=== PATIENT | male | born 1960 | race Caucasian/White ===

== ENCOUNTER → 2016-10-06 | Outpatient (CLI) | payer OTHER ==
[~2016-10-06] MED LIST: ASPI81TA28 PO; ATOR-22 PO; CHOL20009 PO; FLAX10004 PO; GLAT1INJ SC; GLATIRAMER ACETATE SQ; INSDGI SC; LSN/2025 PO; MELO7.5T6 PO; METF-384 PO; MRLP17X PO; NVLGI SC; OXYC-57 PO; SITA100T3 PO; TRIA0.1C20 TOP
== END | disposition home or self-care (01) ==
LOC: C.LABSPEC 17:28
PROVIDERS: ATTEND Podiatrist Foot & Ankle Surgery
DX: L97.509 Non-pressure chronic ulcer of other part of unspecified foot with unspecified severity (principal)

== ENCOUNTER → 2016-12-16 | Outpatient (CLI) | payer OTHER ==
[2016-12-16 12:21] LABS: BLOOD UREA NITROGEN 18 mg/dl (7-18); CREATININE 0.89 mg/dl (0.60-1.40)
== END | disposition home or self-care (01) ==
LOC: C.LABPVFM 08:11
PROVIDERS: ATTEND Psychiatry & Neurology Neurology
DX: E11.65 Type 2 diabetes mellitus with hyperglycemia (principal)

== ENCOUNTER → 2016-12-21 | Outpatient (CLI) | payer OTHER ==
[~2016-12-21] MED LIST changes: +GADAVIST IV PRN
--- NOTE | 2016-12-21 11:12 | DIAGNOSTIC IMAGING REPORT ---
BRAIN COMBO FOR MS CLINICAL HISTORY: Multiple sclerosis. COMPARISON STUDY: MRI of the brain December 30, 2015. TECHNIQUE: Utilizing a 0.7 Jud open magnet, multiplanar, multi echo imaging of the brain was performed pre and postcontrast administration according to the multiple sclerosis protocol. Injection of 20 cc of Gadavist IV was uneventful. FINDINGS: This exam is compromised by artifact. Increased signal intensity within the right temporal lobe on the diffusion-weighted sequence is artifactual. No acute intracranial hemorrhage, midline shift or mass effect is present. Ventricular system is stable. Basilar cisterns are patent. There are no extra-axial collections. Flow-voids for the major intracranial vessels are present. Numerous subcortical and periventricular white matter T2 hyperintense foci are unchanged since MRI of December 30, 2015. No new areas of signal abnormality are present. No enhancement is identified to suggest active demyelination. There is no intracranial mass. Calvarial signal is maintained. Orbits and sinuses are unremarkable. IMPRESSION: 1. No acute intracranial findings. 2. No change in multiple T2 hyperintense foci which suggest previous demyelination. No new plaques identified. No evidence of active demyelination. Electronically signed by: Zain Baron M.D. 12/21/2016 11:10 AM Dictated Date/Time: 12/21/2016 11:05 AM
== END | disposition home or self-care (01) ==
LOC: C.OPENMRI 09:39
PROVIDERS: ATTEND Psychiatry & Neurology Neurology
DX: G35 Multiple sclerosis (principal)

== ENCOUNTER → 2017-01-25 | Outpatient (CLI) | payer OTHER ==
[~2017-01-25] MED LIST changes: -GADAVIST IV PRN
--- NOTE | 2017-01-25 12:33 | DIAGNOSTIC IMAGING REPORT ---
RIGHT ANKLE MIN 3 VIEWS ROUTINE CLINICAL HISTORY: Lower leg edema. DIABETES COMPARISON: None. DISCUSSION: No acute fractures are visualized. There are soft tissue calcifications present. There is Achilles insertional spur. There is a plantar calcaneal spur. There are mild osteoarthritic changes the level the tibiotalar joint. There is a corticated ossicle adjacent distal fibula. This is felt to be old. There are degenerative changes present within the midfoot and talonavicular joint. IMPRESSION: 1. Degenerative changes 2. No acute fractures 3. Calcaneal spurring Electronically signed by: Rocky Landon M.D. 01/25/2017 12:32 PM Dictated Date/Time: 01/25/2017 12:31 PM
--- NOTE | 2017-01-25 12:41 | DIAGNOSTIC IMAGING REPORT ---
RIGHT FOOT MIN 3 VIEWS ROUTINE CLINICAL HISTORY: RIGHT ANKLE/FOOT PAIN L03.115, L97.512, M20.42, M20.41 COMPARISON: 08/17/2016 DISCUSSION: There is a single screw fusing the first interphalangeal joint. There are no acute fractures. There are mild osteoarthritic changes the level the first metatarsal phalangeal joint. Degenerative changes are present the level tarsometatarsal joints. There is Achilles insertional spur. There is a plantar calcaneal spur. IMPRESSION: Postsurgical and degenerative change. No acute fractures. Electronically signed by: Rocky Landon M.D. 01/25/2017 12:40 PM Dictated Date/Time: 01/25/2017 12:38 PM
[2017-01-25 12:42] LABS: BASO % 0.3 %; BASO ABS # 0.02 K/uL (0-0.2); COMPLETE YES; EOS % 0.6 %; HEMATOCRIT 40.8 % (42-52); IG% 0.1 %; LYMPH % 26.9 %; MEAN CELL VOLUME 84.8 fL (80-100); MEAN CORPUSCULAR HEMOGLOBIN 27.4 pg (25-34); MEAN CORPUSCULAR HGB CONC 32.4 g/dl (32-36); MONO % 6.9 %; NEUT % 65.2 %; PLATELET COUNT 153 K/uL (130-400); RED BLOOD COUNT 4.81 M/uL (4.7-6.1); WHITE BLOOD COUNT 6.69 K/uL (4.8-10.8)
== END | disposition home or self-care (01) ==
LOC: C.RAD 11:40
PROVIDERS: ATTEND Podiatrist Foot & Ankle Surgery
DX: L03.115 Cellulitis of right lower limb (principal); L97.512 Non-pressure chronic ulcer of other part of right foot with fat layer exposed; E10.49 Type 1 diabetes mellitus with other diabetic neurological complication; M20.41 Other hammer toe(s) (acquired), right foot; M20.42 Other hammer toe(s) (acquired), left foot; M77.31 Calcaneal spur, right foot

== ENCOUNTER → 2017-01-25 | Outpatient (CLI) | payer OTHER | END | disposition home or self-care (01) | LOC: C.LABSPEC 16:48 | PROVIDERS: ATTEND Podiatrist Foot & Ankle Surgery | DX: L97.509 Non-pressure chronic ulcer of other part of unspecified foot with unspecified severity (principal) ==

== ENCOUNTER → 2017-02-11 | Outpatient (CLI) | payer OTHER ==
--- NOTE | 2017-02-11 11:20 | DIAGNOSTIC IMAGING REPORT ---
RIGHT FOOT MRI WITHOUT INTRAVENOUS CONTRAST HISTORY: Right foot pain. R FOOT,HX CHRONIC ULCER,MTPJ Right TECHNIQUE: Multiplanar multisequence MRI of the right foot was performed without the use of intravenous contrast. COMPARISON STUDY: Right foot 01/25/2017. Right foot MRI 07/13/2016. FINDINGS: There is a single screw through both the proximal and distal phalanx of the first toe resulting in fusion of the interphalangeal joint. No abnormal marrow signal within the visualized osseous structures. No fracture or dislocation within the forefoot. There is a skin marker along the plantar surface at the level the first MTP joint. There is a small amount of soft tissue edema within the subcutaneous soft tissues at this location and mild skin thickening. There is also a 9 mm focal skin ulceration at this location. The sesamoid bones demonstrate a normal signal intensity. Moderate cartilage space narrowing and small marginal osteophytes at the first MTP joint consistent with degenerative change. There is also linear hypointense focus within the subcutaneous soft tissues at the plantar surface deep to the skin marker. This favors an area of scarring. Mild subcutaneous edema within the dorsal lateral aspect of the forefoot. Small focus of subchondral cystic change at the head of the first metatarsal. IMPRESSION: 1. Overall, there has been no significant change compared to the prior study. There is a skin marker at the plantar surface at the level of the first MTP joint. Deep to the skin marker there is mild skin thickening and subcutaneous edema with a 9 mm focal skin ulceration. This may represent a cellulitis. 2. No fracture, dislocation, or evidence for osteomyelitis within the foot. 3. There is also hypointense signal within the subcutaneous soft tissues deep to the skin marker. This may represent an additional area of scarring. 4. 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 5. Prior fusion of the right first interphalangeal joint. Electronically signed by: Oscar Haley M.D. 02/11/2017 11:19 AM Dictated Date/Time: 02/11/2017 11:12 AM
== END | disposition home or self-care (01) ==
LOC: C.MRI 09:04
PROVIDERS: ATTEND Podiatrist Foot & Ankle Surgery
DX: L97.512 Non-pressure chronic ulcer of other part of right foot with fat layer exposed (principal); L03.115 Cellulitis of right lower limb

== ENCOUNTER → 2017-02-25 | Outpatient (CLI) | payer OTHER ==
[2017-02-25 13:06] LABS: ESTIMATED AVERAGE GLUCOSE 177 mg/dl; HA1C FLAG Normal (Normal)
[2017-02-25 13:13] LABS: RATIO 8.4 mcg/mg (0-30.0)
[2017-02-25 13:55] LABS: ALT/SGPT 29 U/L (12-78); AST/SGOT 13 U/L (15-37); BLOOD UREA NITROGEN 17 mg/dl (7-18); BUN/CREATININE RATIO 19.7 (10-20); CALCIUM 9.2 mg/dl (8.5-10.1); CARBON DIOXIDE 28 mmol/L (21-32); CHLORIDE 103 mmol/L (98-107); CREATININE 0.86 mg/dl (0.60-1.40); GLUCOSE 106 mg/dl (70-99); POTASSIUM 3.9 mmol/L (3.5-5.1); SODIUM 138 mmol/L (136-145)
[2017-02-25 13:58] LABS: ALB/GLOB RATIO 0.8 (0.9-2); ALKALINE PHOSPHATASE 142 U/L (45-117)
== END | disposition home or self-care (01) ==
LOC: C.LABPVFM 09:45
PROVIDERS: ATTEND Urology
DX: R39.15 Urgency of urination (principal); I10 Essential (primary) hypertension; E78.5 Hyperlipidemia, unspecified; G35 Multiple sclerosis; R79.9 Abnormal finding of blood chemistry, unspecified; E55.9 Vitamin D deficiency, unspecified

== ENCOUNTER → 2017-03-11 | Outpatient (CLI) | payer OTHER ==
--- NOTE | 2017-03-11 12:54 | DIAGNOSTIC IMAGING REPORT ---
RIGHT ANKLE MIN 3 VIEWS ROUTINE CLINICAL HISTORY: 56 years-old Male presenting with RIGHT FOOT PAIN Right. TECHNIQUE: Frontal, oblique, and lateral views of the right ankle were obtained. COMPARISON: 01/25/2017. FINDINGS: Ankle mortise intact. Osteophyte formation at the medial talar dome indicative of degenerative change of the tibiotalar articulation. Prominent bone spurs at the posterior calcaneal tuberosity as well as at the inferior calcaneus. Cortical irregularity at the distal fibula, possible old injury. Additional small osseous fragment inferior to the medial malleolus, likely also old injury. No acute fracture or malalignment. IMPRESSION: 1. No acute osseous injury. Evidence of prior osseous injuries as above. 2. Degenerative changes at the tibiotalar articulation, Achilles tendon insertion, and plantar fascia origin. Electronically signed by: Prasad Cox M.D. 03/11/2017 12:52 PM Dictated Date/Time: 03/11/2017 12:50 PM
--- NOTE | 2017-03-11 13:01 | DIAGNOSTIC IMAGING REPORT ---
RIGHT FOOT MIN 3 VIEWS ROUTINE CLINICAL HISTORY: Right foot pain COMPARISON: 01/25/2017 DISCUSSION: There is a single screw fusing the interphalangeal joint of the great toe. There are no acute fractures. There is a soft tissue calcification visualized in the lateral view, dorsal to the first metatarsal phalangeal joint. There is plantar calcaneal spurring. There is an Achilles insertional spur. There are degenerative changes at the level tarsometatarsal joints. IMPRESSION: Postsurgical and degenerative change. No acute fractures. Electronically signed by: Rocky Landon M.D. 03/11/2017 1:00 PM Dictated Date/Time: 03/11/2017 12:58 PM
== END | disposition home or self-care (01) ==
LOC: C.RAD 12:02
PROVIDERS: ATTEND Podiatrist Foot & Ankle Surgery
DX: M24.871 Other specific joint derangements of right ankle, not elsewhere classified (principal); M76.899 Other specified enthesopathies of unspecified lower limb, excluding foot

== ENCOUNTER → 2017-09-06 | Outpatient (CLI) | payer OTHER ==
[2017-09-06 14:00] LABS: ALBUMIN 3.4 gm/dl (3.4-5.0); ALT/SGPT 27 U/L (12-78); BLOOD UREA NITROGEN 14 mg/dl (7-18); CALCIUM 9.4 mg/dl (8.5-10.1); CARBON DIOXIDE 30 mmol/L (21-32); CHOLESTEROL 113 mg/dl (0-200); CREATININE 0.76 mg/dl (0.60-1.40); GLUCOSE 134 mg/dl (70-99); HEMOGLOBIN A1C 6.9 % (4.5-5.6); POTASSIUM 4.1 mmol/L (3.5-5.1); SODIUM 137 mmol/L (136-145)
[2017-09-06 14:05] LABS: ALKALINE PHOSPHATASE 119 U/L (45-117); AST/SGOT 17 U/L (15-37); LDL CHOLESTEROL CALCULATED 53 mg/dl; TOTAL PROTEIN 7.6 gm/dl (6.4-8.2)
== END | disposition home or self-care (01) ==
LOC: C.LABPVFM 09:24
PROVIDERS: ATTEND Family Medicine
DX: I10 Essential (primary) hypertension (principal); E78.5 Hyperlipidemia, unspecified; E11.65 Type 2 diabetes mellitus with hyperglycemia; E11.69 Type 2 diabetes mellitus with other specified complication; E11.42 Type 2 diabetes mellitus with diabetic polyneuropathy; E55.9 Vitamin D deficiency, unspecified; N39.41 Urge incontinence

== ENCOUNTER → 2017-11-16 | Outpatient (CLI) | payer OTHER ==
--- NOTE | 2017-11-16 11:37 | DIAGNOSTIC IMAGING REPORT ---
L FOOT MIN 3 VIEWS ROUTINE CLINICAL HISTORY: NEUROPATHY, L FOOT AND ANKLE EDEMA COMPARISON: Left ankle radiographs February 04, 2015 left foot radiographs July 09, 2010. FINDINGS: There is evidence for amputation of the distal phalanx of the left second toe. There are suspected old fractures of the proximal phalanges of the third, fourth and fifth toes. No acute fracture within the left foot is identified. Alignment of the tarsometatarsal joints is anatomic. Periosteal thickening of the distal left fibula and tibia is noted. Flat foot deformity is noted on lateral projection with extensive sclerosis, osteophytosis and bony fragmentation involving the left hind foot and to a lesser extent the midfoot. Significant progression is noted since exam of February 04, 2015. IMPRESSION: 1. Pes planus deformity with severe deformity of the left hindfoot and to a lesser extent the midfoot with osteophytosis, sclerosis and bony fragmentation with significant progression since exam of February 04, 2015. This suggests a neuropathic arthropathy although old post traumatic change could appear similar. 2. No acute fracture within the left foot. 3. Intact tarsometatarsal joints. 4. Several old left foot fractures, as described above. 5. Periosteal thickening of the distal left fibula and tibia. Electronically signed by: Zain Baron M.D. 11/16/2017 11:36 AM Dictated Date/Time: 11/16/2017 11:30 AM
--- NOTE | 2017-11-16 11:56 | DIAGNOSTIC IMAGING REPORT ---
L ANKLE MIN 3 VIEWS ROUTINE CLINICAL HISTORY: 56 years-old Male presenting with NEUROPATHY, L FOOT AND ANKLE EDEMA. TECHNIQUE: Frontal, oblique, and lateral views of the left ankle were obtained. COMPARISON: None. FINDINGS: Extensive deformity of the ankle with loss of normal talocalcaneal angulation relative to the midfoot and resulting loss of the longitudinal arch. Disorganization of the talar joints. Diffuse sclerosis and disorganization of the ankle joint and hindfoot. Thick periosteal reaction noted along the distal fibula. Ossific material inferior to the anterior calcaneus. Possible dislocation of the talonavicular and navicular cuneiform articulations. Diffuse soft tissue swelling. Diffuse skin thickening. IMPRESSION: Findings could be compatible with a Charcot joint, severe posttraumatic deformity, and/or related to chronic osteomyelitis/septic arthritis. Electronically signed by: Prasad Cox M.D. 11/16/2017 11:55 AM Dictated Date/Time: 11/16/2017 11:50 AM
== END | disposition home or self-care (01) ==
LOC: C.RAD 10:20
PROVIDERS: ATTEND Internal Medicine Endocrinology, Diabetes & Metabolism
DX: G62.9 Polyneuropathy, unspecified (principal); R60.0 Localized edema; M21.42 Flat foot [pes planus] (acquired), left foot

== ENCOUNTER → 2017-12-10 | Outpatient (CLI) | payer OTHER ==
--- NOTE | 2017-12-10 14:13 | DIAGNOSTIC IMAGING REPORT ---
L LOWER EXT JOINT WITHOUT HISTORY: 56 years-old Male DIABETES,LT CHARCOT FX,NEUROPATHY acute pain and swelling of the left ankle and left hindfoot with history of Charcot neuropathy. COMPARISON: Left foot and ankle radiographs 11/16/2017 TECHNIQUE: Multiplanar multisequence MRI of the left hindfoot was obtained without the use of IV contrast. FINDINGS: The bar pilot images demonstrate no gross abnormality of the imaged forefoot or lower leg. Moderate joint space narrowing with marginal spurring, chondral thinning and subcortical cystic changes/edema involves the tibiotalar joint, most pronounced anteriorly. There is no definite acute fracture identified. Pes planus deformity with hindfoot collapse. Severe joint space narrowing with chondral thinning, fragmentation and underlying subcortical cystic change/edema involves the subtalar joint, notably within the middle and posterior facets. Trace fluid is noted within the talonavicular joint. Large corticated bone fragments are seen dorsal to the anterior process talus. There is diffuse destruction of articular cartilage with innumerable loose bodies about the midfoot and hindfoot. The talus is dislocated medially in relation to the calcaneus. The distal fibula articulates with the posterior and middle facets of the calcaneus.. Marked cortical thickening involving the distal fibula with edema noted within the distal tibiofibular syndesmosis. Trace fluid within the retrocalcaneal bursa. Mild thickening of the distal Achilles tendon suggests tendinosis without discrete tear. Large plantar enthesophyte with thickening of the medial and lateral cords of the plantar fascia. Mild nonspecific intramuscular edema involves the plantar musculature of the midfoot, partially imaged on image 1 series 7. There is diffuse severe intrinsic musculature atrophy about the foot. No discrete tear of the imaged extensor tendons. Tendinosis of the peroneus longus and brevis tendons. Trace tenosynovitis of the tibialis posterior and flexor digitorum longus tendons. Moderate tendinosis of the tibialis posterior. Mild to moderate subcutaneous edema about the imaged lower leg and ankle circumferentially. IMPRESSION: 1. No acute fracture identified. 2. Charcot neuropathy with pes planus deformity and chronic dislocation of the talocalcaneal articulation with pseudoarticulation of the distal fibula with the middle and posterior facets of the calcaneus. 3. Mild tenosynovitis of the tibialis posterior and flexor digitorum longus tendons with mild peroneus longus and brevis tendinosis. 4. Severe intrinsic musculature about the foot compatible with long-standing denervation with diabetes mellitus. The above report was generated using voice recognition software. It may contain grammatical, syntax or spelling errors. Electronically signed by: Nicolás Marroquin M.D. 12/10/2017 2:12 PM Dictated Date/Time: 12/10/2017 2:00 PM
== END | disposition home or self-care (01) ==
LOC: C.MRI 11:36
PROVIDERS: ATTEND Internal Medicine Endocrinology, Diabetes & Metabolism
DX: G35 Multiple sclerosis (principal); G62.9 Polyneuropathy, unspecified; M21.42 Flat foot [pes planus] (acquired), left foot

== ENCOUNTER → 2018-03-10 | Outpatient (CLI) | payer OTHER ==
[~2018-03-10] MED LIST changes: +LISI20TA11 PO; -LSN/2025 PO
[2018-03-10 13:29] LABS: BASO % 0.3 %; BASO ABS # 0.03 K/uL (0-0.2); EOS % 0.9 %; EOS ABS # 0.09 K/uL (0-0.5); HEMATOCRIT 42.7 % (42-52); HEMOGLOBIN 14.3 g/dL (14.0-18.0); IG# 0.02 K/uL (0.00-0.02); LYMPH % 23.8 %; MEAN CELL VOLUME 84.1 fL (80-100); MEAN CORPUSCULAR HEMOGLOBIN 28.1 pg (25-34); MEAN CORPUSCULAR HGB CONC 33.5 g/dl (32-36); MEAN PLATELET VOLUME 13.3 fL (7.4-10.4); MONO % 6.1 %; MONO ABS # 0.61 K/uL (0.11-0.59); NEUT % 68.7 %; NEUT ABS # 6.93 K/uL (1.4-6.5); PLATELET COUNT 180 K/uL (130-400); RED CELL DISTRIBUTION WIDTH CV 14.7 % (11.5-14.5); RED CELL DISTRIBUTION WIDTH SD 45.4 fL (36.4-46.3); WHITE BLOOD COUNT 10.08 K/uL (4.8-10.8)
[2018-03-10 13:53] LABS: ALBUMIN 3.4 gm/dl (3.4-5.0); ALKALINE PHOSPHATASE 138 U/L (45-117); ALT/SGPT 35 U/L (12-78); AST/SGOT 19 U/L (15-37); BLOOD UREA NITROGEN 13 mg/dl (7-18); CALCIUM 8.8 mg/dl (8.5-10.1); CARBON DIOXIDE 28 mmol/L (21-32); CREATININE 0.82 mg/dl (0.60-1.40); GLUCOSE 90 mg/dl (70-99); POTASSIUM 3.9 mmol/L (3.5-5.1); SODIUM 139 mmol/L (136-145); TOTAL PROTEIN 7.8 gm/dl (6.4-8.2)
[2018-03-11 06:21] LABS: HEMOGLOBIN A1C 7.6 % (4.5-5.6)
== END | disposition home or self-care (01) ==
LOC: C.LABPVFM 11:14
PROVIDERS: ATTEND Family Medicine
DX: I10 Essential (primary) hypertension (principal); E78.5 Hyperlipidemia, unspecified; E11.65 Type 2 diabetes mellitus with hyperglycemia; E11.69 Type 2 diabetes mellitus with other specified complication; N39.41 Urge incontinence; E66.01 Morbid (severe) obesity due to excess calories

== ENCOUNTER 2025-05-15 12:49 | Inpatient (IN) ==
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
[2025-05-15 14:25] LABS: Hematocrit (blood only) 39.6 % (42.0-52.0); Hemoglobin 13.1 g/dl (14.0-18.0); Immature Granulocytes # (auto) 0.02 K/uL (0.01-0.20); Immature Granulocytes % (auto) 0.3 %; Mean Corpuscular Hemoglobin 28.4 pg (25.0-34.0); Mean Corpuscular Volume 85.7 fL (80.0-100.0); Platelet Count 145 K/uL (130-400); RDW Standard Deviation 45.4 fL (36.4-46.3); Red Blood Count 4.62 M/uL (4.70-6.10); White Blood Count 6.09 K/ul (4.8-10.8)
--- NOTE | 2025-05-15 14:40 | CT Scan Report ---
CT foot RT wo con CLINICAL HISTORY: infection to great toe COMPARISON STUDY: X-ray of 05/08/2025 FINDINGS: There is prior amputation of the fourth toe. No acute fracture or dislocation seen. There i s fusion with screw of the first IP joint with no hardware complication seen. No evidence of osteomye litis seen. No soft tissue abscess. There are mild to moderate scattered degenerative changes. IMPRESSION: No osteomyelitis or soft tissue abscess seen. ACT 112: Negative or not required by law. Electronically signed by: Warren Zapien M.D. 05/15/2025 2:38 PM
[2025-05-15 14:41] LABS: Anion Gap 6.0 (3-11); Blood Urea Nitrogen 13.0 mg/dl (6-23); Calcium 8.1 mg/dl (8.6-10.3); Carbon Dioxide 33.0 mmol/L (21-32); Chloride 103.0 mmol/L (98-107); Creatinine Clr Calc Pharmacy 174.5 ml/min; Glucose 140.0 mg/dl (70-99(Fasting)); Potassium 3.4 mmol/L (3.5-5.1); Sodium 142.0 mmol/L (136-145)
[2025-05-15] MEDS: PIPERACILLIN/TAZOBACTAM 4.5 GM/100 ML BAG IV ONE (15:23)
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
--- NOTE | 2025-05-15 17:22 | Ultrasound Report ---
Examination: US LUPILLO ANKLE-BRACHIAL INDEX-RIGHT Procedure: Physiologic arterial testing of the lower extremities with Doppler waveforms in bilateral ankle-brachial indices Comparison: No prior imaging available for comparison. Indication: Assess for vascular disease. Left arm not performed due to IV in AC fossa. FINDINGS: BRACHIAL PRESSURES: Right brachial systolic pressure is 165 mmHg Left not performed SEGMENTAL PRESSURES: All ankle and calf pressures are within normal limits and show no significant pressure gradients (drop greater than 20 to 30 mmHg) from 1 segment to the next. Right Ankle: 212 mmHg (Posterior Tibial Artery,CHIEF INNOVATION OFFICER) and 1.32; 218 mmHg (Dorsalis Pedis Artery,DPA) and 1.28. Leftt Ankle: Noncompressible (Posterior Tibial Artery,CHIEF INNOVATION OFFICER) and 196 (Dorsalis Pedis Artery,DPA) and 1.19. DOPPLER WAVEFORMS: All waveforms in the tibial, popliteal and femoral arteries are triphasic, indicating normal blood flow. Patient is noncompressible. ANKLE-BRACHIAL INDEX (LUPILLO): Right: 1.32 Left: 1.19 IMPRESSION: Triphasic waveforms with noncompressible vasculature with velocities and indices as above. CTA or MRA of the abdomen with bilateral runoff is suggested if clinically appropriate. Please note, noncompressible LUPILLO's, suggest vessel hardening and may render measurements unreliable for diagnosing Peripheral Artery Disease. SEVERITY OF DISEASE: >1.3 noncompressed 1.00-1.29 normal 0.91-0.99 borderline 0.41-0.9 mild/moderate 0.0-0.4 severe Electronically signed by Gladys Walton 05-15-2025 5:21 PM
--- NOTE | 2025-05-15 17:39 | Billing Data ---
Date of Service May 15, 2025 Coding Level of Care Code 83011 INT INP/OBS CARE
[2025-05-15] MEDS ORDERED: ONDANSETRON INJ 2 MG/ML 2 ML VIAL IV PRN (18:03)
[2025-05-15] MEDS ORDERED: GLUCAGON FOR INJ 1 MG VIAL SQ PRN (18:03)
[2025-05-15] MEDS ORDERED: CARBOHYDRATES FOR HYPOGLYCEMIA PO PRN (18:03)
[2025-05-15] MEDS ORDERED: GLUCOSE 40% GEL 15 GM TUBE PO PRN (18:03)
[2025-05-15] MEDS ORDERED: GLUCOSE 10 TAB/TUBE PO PRN (18:03)
[2025-05-15] MEDS ORDERED: MELATONIN 3 MG TAB PO PRN (18:03)
[2025-05-15] MEDS ORDERED: DEXTROSE 50% 50 ML SYRINGE IV PRN (18:03)
[2025-05-15] MEDS ORDERED: POLYETHYLENE (MIRALAX) 17 GM PACK PO PRN (18:03)
[2025-05-15] MEDS ORDERED: MAGNESIUM HYDROXIDE SUSP 30 ML UDC PO PRN (18:03)
[2025-05-15] MEDS ORDERED: ALUMINUM/MAGNESIUM SUSP 30 ML UDC PO PRN (18:03)
[2025-05-15] MEDS: INSULIN ASPART PER UNIT CHARGE SC SCH (21:20)
[2025-05-15] MEDS: LANTUS PER UNIT CHARGE SQ SCH (22:51)
[2025-05-16] MEDS ORDERED: Nursing to Pharmacy Communication SCH ×2 (05:00→20:45)
[2025-05-16] MEDS: INSULIN ASPART PER UNIT CHARGE SC SCH ×2 (05:50→20:58)
[2025-05-16 06:18] LABS: Hematocrit (blood only) 39.5 % (42.0-52.0); Hemoglobin 12.6 g/dl (14.0-18.0); Immature Granulocytes # (auto) 0.02 K/uL (0.01-0.20); Immature Granulocytes % (auto) 0.3 %; Mean Corpuscular Hemoglobin 26.9 pg (25.0-34.0); Mean Corpuscular Volume 84.2 fL (80.0-100.0); Platelet Count 140 K/uL (130-400); RDW Standard Deviation 44.2 fL (36.4-46.3); Red Blood Count 4.69 M/uL (4.70-6.10); White Blood Count 7.90 K/ul (4.8-10.8)
[2025-05-16 06:44] LABS: Anion Gap 7.0 (3-11); Blood Urea Nitrogen 12.0 mg/dl (6-23); Calcium 7.9 mg/dl (8.6-10.3); Carbon Dioxide 30.0 mmol/L (21-32); Chloride 105.0 mmol/L (98-107); Creatinine Clr Calc Pharmacy 182.7 ml/min; Potassium 3.5 mmol/L (3.5-5.1); Sodium 142.0 mmol/L (136-145)
[2025-05-16 07:47] LABS: Hemoglobin A1C 7.1 % (4.5-5.6)
[2025-05-16] MEDS: LISINOPRIL/HCTZ 20/25MG 1 TAB PO SCH (08:20)
[2025-05-16] MEDS: ATORVASTATIN 20 MG TAB PO SCH (08:20)
[2025-05-16] MEDS: OXYBUTYNIN CHLORIDE XL 5 MG TABCR PO SCH (08:21)
[2025-05-16] MEDS ORDERED: NON-FORMULARY PATIENT'S OWN MED SCH (09:00)
--- NOTE | 2025-05-16 12:23 | Hospitalist Progress Note ---
Date of Service May 16, 2025 Assessment & Plan (1) Cellulitis of great toe, right: (2) Diabetic foot infection: (3) Diabetes mellitus type 2, controlled, with complications: (4) Osteomyelitis of great toe of right foot: Plan Mr. Mccann is a pleasant 64yo gentleman with PMH of T2DM with neuropathy, diabetic foot ulcers, multiple sclerosis, bladder tumors, and stroke 10 years ago here due to being sent in from his outpatient Podiatry office for a screw in his right first hallux. Pt was started on Zosyn in the ED. Labs are reassuring for no leukocytosis. CT imaging of foot shows no signs of osteomyelitis. Podiatry is on board with plans to keep pt NPO after midnight and surgery tomorrow. #Cellulitis of right hallux #Diabetic foot wound #Concern for osteomyelitis #Type 2 Diabetes with neuropathy #Infected hardware -NPO, hold PO meds -surgery planned this afternoon -Tylenol 650mg prn for pain -Ancef 2g q8hrs, today 2/ tentatively -Glargine 20 units BID, hold until after surgery -Aspart 10 units, hold until after surgery -Wegovy, hold -Metformin, hold #Hyperlipidemia -continue atorvastatin 20mg qdaily #HTN -continue lisinopril-HCT 20-25mg qdaily #Multiple Sclerosis -continue teriflunomide 14mg qdaily #Overactive Bladder -continue solifenacin 5mg qdaily Dispo: med/surg Diet: NPO now, diabetic diet after surgery DVT prophylaxis: SCDs Full Code Admission and Anticipated Discharge Date Admission Date: May 15, 2025 Supervising Physician Co-Signing Physician Notes I personally examined the patient and verified all danielson points of history and exam, discussed case, and agree with decision making with Dr Gómez No new complaints. Informed surgery not until about 5 PM today. He is okay with this. No needs identified. Vitals noted, in general he is awake and alert pleasant no distress. HEENT normocephalic atraumatic mucous membranes moist. Breathing unlabored no accessory muscle use good effort. Skin without rashes pallor or icterus. Neuro without focal deficits. Feet dressed. Labs and diagnostics noted. Longstanding foot wound/diabetic foot infection with presumed osteomyelitis present on admissionfortunately not severe sepsis or septic shockand does not have a notable track record of prior cultures of nosocomial resistant pathogens Continue antibiotic coverage with Ancef for now. Surgery later today type 2 diabeteslast A1c 6.5, current 7.1. Overall control appears to be good. sugars adequate today. Continue basal bolus regimen. otherwise as above Subjective No overnight events. Pt feels well this morning. Awaiting surgery. He reports no pain, fever, chills, CP, SOB, N/V/C/D, abdominal pain, or complaints. Review of Systems Review of Systems: per HPI Physical Exam Physical Exam: GA: well groomed, well nourished in no apparent distress. AAOx3 HEENT: head normocephalic, atraumatic. EOMI RESP: vesicular breath sounds b/l. No wheezes, rhonchi, or rales CARDIOVASCULAR: S1 and S2 heard. No murmurs, rubs, or gallops. Radial pulses 2+ b/l RRR GI: Normoactive bowel sounds, no tenderness or masses felt to palpation MSK: no gross abnormalities or focal deficits SKIN: warm, dry, no edema PSYCH: appropriate mood and affect NEURO: no focal deficits. speech fluent FOOT: B/L feet in bandages. Results & Data Results & Data Vital Signs (Past 12 Hours) Vital Signs Temp Pulse Resp BP Pulse Ox O2 Del Method 05/16/25 07:50 36.7 C 75 17 144/74 H 95 Room Air Resident Activity Tracking Resident Involvement: Resident Care Provided Care Provided: Adult Hospital Medicine
--- NOTE | 2025-05-16 16:17 | Billing Data ---
Date of Service May 16, 2025 Coding Level of Care Code 43115 SUB INP/OBS CARE
[2025-05-16] MEDS ORDERED: MIDAZOLAM HCL 1 MG/ML 2ML VIAL ONE (17:12)
[2025-05-16] MEDS ORDERED: LIDOCAINE 2% 2 ML VIAL/AMP(20MG/ML) INFIL ONE (17:13)
[2025-05-16] MEDS ORDERED: PROPOFOL IV EMULSION 10 MG/ML 20 ML VIAL IV ONE (17:13)
[2025-05-16] MEDS ORDERED: ONDANSETRON INJ 2 MG/ML 2 ML VIAL ONE (17:13)
[2025-05-16] MEDS: LACTATED RINGER'S 1,000 ML IV SCH (17:49)
--- NOTE | 2025-05-16 18:01 | History & Physical Bridge Note ---
Date of Service May 16, 2025 History & Physical Bridge Note I have examined the patient, reviewed the History & Physical and in the interval since the performance of the History & Physical I have noted the following changes of clinical significance: no changes noted
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
[2025-05-16] MEDS ORDERED: SUCCINYLCHOLINE CHLORIDE 20 MG/ML 10 ML VIAL IV ONE (18:21)
[2025-05-16] MEDS ORDERED: ONDANSETRON INJ 2 MG/ML 2 ML VIAL IV PRN (18:26)
[2025-05-16] MEDS ORDERED: ATROPINE SULFATE 0.1 MG/ML 10ML SYR IV PRN (18:26)
[2025-05-16] MEDS ORDERED: PHENYLEPHRINE 100MCG/ML 5ML SYR ONE (18:43)
[2025-05-16] MEDS: BUPIVACAINE 0.5 % 5 MG/1 ML MPF 30ML VIAL ONE (19:29)
--- NOTE | 2025-05-16 19:53 | Post Operative Brief Note ---
Immediate Post Op Note Date of Surgery May 16, 2025 Pre & Post Diagnosis Operation Date: 05/16/25 07:00 Pre-Op Diagnosis: (1)Diabetic foot infection: (2) Infected hardware in right leg: (3) Charcot joint of ankle: (4) Osteomyelitis of great toe of right foot: (5) Cellulitis of great toe, right: Post-Op Diagnosis: (1) Diabetic foot infection: (2) Infected hardware in right leg: (3) Charcot joint of ankle: (4) Osteomyelitis of great toe of right foot: (5) Cellulitis of great toe, right: I identified the patient and participated in the time-out.: Yes Procedure Operation Date: 05/16/25 07:00 Actual Procedures p Right Foot Incision and Drainage, Bone Biopsy(Right) - Donny Toledo DPM Surgeon Donny Toledo DPM Conservation Assistant n/a Estimated Blood Loss 5 Findings Consistent with Post-Op Diagnosis consistent with operative note Complications consistent with operative note
--- NOTE | 2025-05-16 19:59 | Anesthesiology Progress Note ---
Date of Service May 16, 2025 Anesthesia Post Procedure Vital Signs Vital Signs: Temp Pulse Pulse Pulse Resp BP BP 05/16/25 19:55 36.6 C 68 14 144/80 H 05/16/25 19:45 71 12 149/74 H 05/16/25 19:38 36 C L 72 20 148/79 H 05/16/25 17:38 36.8 C 77 18 143/80 H 05/16/25 17:00 36.4 C L 70 18 155/79 H 05/16/25 07:50 36.7 C 75 17 144/74 H 05/15/25 21:29 37.1 C 73 16 149/78 H Pulse Ox O2 Del Method O2 Flow Rate 05/16/25 19:55 96 Room Air 05/16/25 19:45 96 Room Air 05/16/25 19:38 99 Oxymask 6 05/16/25 17:38 97 Room Air 05/16/25 17:00 96 Room Air 05/16/25 07:50 95 Room Air 05/15/25 21:29 97 Room Air Pain Intensity Right Foot: Pain Intensity: 2 Transfer of Care Handoff Completed per policy Notes Mental Status: alert / awake / arousable Patient Amnestic to Procedure: Yes Nausea / Vomiting: adequately controlled Pain: adequately controlled Airway Patency, RR, SpO2: stable & adequate BP & HR: stable & adequate Hydration State: stable & adequate Anesthetic Complications: no major complications apparent and Pt Satisfied with anesthetic care
--- NOTE | 2025-05-16 20:17 | Operative Report ---
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 benefits outweighed risk of removing entire screw head due to screw stripping and bony ingrowth. Screw was decided to be left in to avoid further damage to right phalangeal bones Specimens right hallux Distal phalangeal bone for microbiology and pathology Right hallux tissue culture Right hallux aerobic deep culture right hallux anaerobic deep culture Complications broken screw head noted prior to hardware removal during intraoperative examination Disposition Accompanied Patient To Recovery: Yes Indications patient is a pleasant 64-year-old male that presented to my clinic with a right hallux wound that did probe down to bone and hardware. Patient was then sent to the emergency department for further evaluation and scheduled incision and drainage, hardware removal, bone biopsy. Extensive discussion was had with patient that this is a limb salvage procedure and that patient may still lose His great toe and is at high risk for limb loss. Patient understands and elected to undergo surgical intervention. Description of Procedure Following satisfactory preop evaluation the patient was brought into the OR table and placed on the OR table in the supine position. General sedation was administered by anesthesia. the foot was then prepped and draped in the usual sterile manner And lowered onto the surgical field. Incision and Drainage - attention was then directed to the right first distal hallux There was noted to be a 1.5 cm x 1.5 cm x 1.3 cm wound was noted. Wound was fibrotic with drainage. using a 15 blade and rongeur the wound edges were debrided of all fibronecrotic tissue. Tissue was then sent off surgical field for microbiology evaluation. Wound was then irrigated with copious amounts of saline. Wound did probe down to the level of bone where a bone biopsy was performed. Hardware removal: attention was then directed to the distal hallux where wound did probe down to the level of bone. screw head was then identified via C arm fluoroscopy. During intraoperative examination it was noted that the screw head was broken. The broken screw head was then removed from surgical incision and removed off the field. screw was unable to be removed from the hallux due to screw stripping, bony overgrowth and loss of screw head. multiple attempts were made to extract screw from right distal hallux. At that time decision was made to keep hardware in the right distal hallux to lessen trauma to the right distal hallux And benefits did Bone biopsy: A stab incision was made using a #15 blade at the level of the medial right hallux. Incision was made down to the level of bone. Using a Jamshidi needle bone was extracted from the right distal phalanx. Bone was then sent off the field for pathologic and microbiology evaluation. Incision was then flushed with copious amounts of saline. Healthy wound margins were noted incision was closed using 3-0 nylon suture. Postop injection with 0.5% Marcaine plain was then injected 10 cc were given. A dressing was applied consisting of Xeroform, 4 x 4 gauze, Kerlix and Raul bandage. The patient tolerated anesthesia and the procedure well was transported to recovery. Orders for the following were given: dispense surgical shoe right foot Partial weightbearing to right foot Rest ice elevate right foot Keep dressing CDI outweigh risk I attest to the content of the Intraoperative Record and any orders documented therein. Any exceptions are noted below.
[2025-05-16] MEDS: ACETAMINOPHEN 325 MG TAB PO PRN (20:52)
[2025-05-17] MEDS: MoRPHine SULFATE 2 MG/ML CARP IV STA (01:34)
[2025-05-17 06:18] LABS: Hematocrit (blood only) 36.2 % (42.0-52.0); Hemoglobin 12.0 g/dl (14.0-18.0); Immature Granulocytes # (auto) 0.02 K/uL (0.01-0.20); Immature Granulocytes % (auto) 0.3 %; Mean Corpuscular Hemoglobin 28.4 pg (25.0-34.0); Mean Corpuscular Volume 85.6 fL (80.0-100.0); Platelet Count 132 K/uL (130-400); RDW Standard Deviation 44.5 fL (36.4-46.3); Red Blood Count 4.23 M/uL (4.70-6.10); White Blood Count 6.92 K/ul (4.8-10.8)
[2025-05-17 06:43] LABS: Anion Gap 5.0 (3-11); Blood Urea Nitrogen 14.0 mg/dl (6-23); Calcium 8.0 mg/dl (8.6-10.3); Carbon Dioxide 32.0 mmol/L (21-32); Chloride 105.0 mmol/L (98-107); Creatinine Clr Calc Pharmacy 177.5 ml/min; Potassium 3.4 mmol/L (3.5-5.1); Sodium 142.0 mmol/L (136-145)
--- NOTE | 2025-05-17 07:12 | Podiatry Progress Note ---
Date of Service May 17, 2025 Assessment & Plan (1) Diabetic foot infection: (2) Infected hardware in right leg: (3) Charcot joint of ankle: (4) Osteomyelitis of great toe of right foot: (5) Cellulitis of great toe, right: Plan -All labs, imaging, and notes reviewed -CT ordered and reviewed. No gas or osteomyelitis noted on imaging -Vascular studies ordered. LUPILLO 1.32 right and 1.19 left -Cultures and bone biopsy taken intra op. Cultures pending -Infectious disease consulted. Appreciate recommendations. -S/p right foot incision and drainage and bone biopsy 05/16/25 -Patient is okay to be discharged from podiatry perspective once medically clear ed by infectious disease and all other specialties. -Will continue to follow while patient is inhouse. Admission and Anticipated Discharge Date Admission Date: May 15, 2025 Subjective Patient is a 64 year old male that is s/p right foot incision and drainage, hardware removal, and bone biopsy 05/16/25. Dressing is CDI this morning. minimal pain this morning. No new pedal complaints. Review of Systems Review of Systems: All systems reviewed & are unremarkable except as noted in HPI & below Physical Exam Cardiovascular: DP and PT pulses non palpable Skin: Incision is well coapted. No gapping noted. minimal drainage noted right foot. Results & Data Results & Data Vital Signs (Past 12 Hours) Vital Signs Temp Pulse Pulse Resp BP Pulse Ox O2 Del Method 05/17/25 06:17 36.3 C L 66 16 128/77 96 Room Air 05/16/25 21:50 36.6 C 76 16 119/68 95 Room Air 05/16/25 20:38 36.5 C 67 16 148/79 H 95 Room Air 05/16/25 20:23 36.6 C 67 16 148/78 H 98 Room Air 05/16/25 19:55 36.6 C 68 14 144/80 H 96 Room Air 05/16/25 19:45 71 12 149/74 H 96 Room Air 05/16/25 19:38 36 C L 72 20 148/79 H 99 Oxymask O2 Flow Rate 05/17/25 06:17 05/16/25 21:50 05/16/25 20:38 05/16/25 20:23 05/16/25 19:55 05/16/25 19:45 05/16/25 19:38 6
--- NOTE | 2025-05-17 09:31 | Fluoroscopy Report ---
FL foot RT 2V CLINICAL HISTORY: HARDWARE REMOVAL, MINI-ANGELIKA COMPARISON STUDY: 05/08/2025 FLUOROSCOPY TIME: 4 seconds FLUOROSCOPY IMAGES: 2 EXPOSURE DOSE: 0.08 mGy FINDINGS: Fluoroscopy was provided for surgery at the great toe. IMPRESSION: Intraoperative fluoroscopy. ACT 112: Negative or not required by law. Electronically signed by: Warren Zapien M.D. 05/17/2025 9:29 AM
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
--- NOTE | 2025-05-17 10:09 | Podiatry Progress Note ---
Date of Service May 17, 2025 Assessment & Plan (1) Diabetic foot infection: (2) Infected hardware in right leg: (3) Charcot joint of ankle: (4) Osteomyelitis of great toe of right foot: (5) Cellulitis of great toe, right: Plan -All labs, imaging, and notes reviewed -CT ordered and reviewed. No gas or osteomyelitis noted on imaging -Vascular studies ordered. LUPILLO 1.32 right and 1.19 left -Cultures and bone biopsy taken intra op. Cultures pending -Infectious disease consulted. Appreciate recommendations. -S/p right foot incision and drainage and bone biopsy 05/16/25 -Bone biopsy specimen was mishandled during transmit to Lab. Discussed with sintia askew that another bone biopsy specimen will have to be obtained. Patient had breakfast this morning. Will plan on right great toe bone biopsy for this afternoon. -Will continue to follow while patient is inhouse. Admission and Anticipated Discharge Date Admission Date: May 15, 2025 Results & Data Results & Data Vital Signs (Past 12 Hours) Vital Signs Temp Pulse Resp BP Pulse Ox O2 Del Method 05/17/25 07:50 36.4 C L 69 18 128/71 96 Room Air 05/17/25 06:17 36.3 C L 66 16 128/77 96 Room Air
[2025-05-17] MEDS: INSULIN ASPART PER UNIT CHARGE SC SCH ×2 (11:35→17:42)
--- NOTE | 2025-05-17 11:43 | Hospitalist Progress Note ---
Date of Service May 17, 2025 Assessment & Plan (1) Cellulitis of great toe, right: (2) Diabetic foot infection: (3) Diabetes mellitus type 2, controlled, with complications: (4) Osteomyelitis of great toe of right foot: Plan Mr. Mccann is a pleasant 64yo gentleman with PMH of T2DM with neuropathy, diabetic foot ulcers, multiple sclerosis, bladder tumors, and stroke 10 years ago here due to being sent in from his outpatient Podiatry office for a screw in his right first hallux. Pt was started on Zosyn in the ED. Labs are reassuring for no leukocytosis. CT imaging of foot shows no signs of osteomyelitis. Podiatry is on board with plans to keep pt NPO after midnight and surgery tomorrow. #Cellulitis of right hallux #Diabetic foot wound #Concern for osteomyelitis #Type 2 Diabetes with neuropathy #Infected hardware -OR today for repeat bone biopsy -Tylenol 650mg prn for pain -Ancef 2g q8hrs, today 3/5 tentatively but likely long-term as hardware is still in place. -Glargine 20 units BID -Aspart 10 units -Wegovy, hold -Metformin, hold #Hyperlipidemia -continue atorvastatin 20mg qdaily #HTN -continue lisinopril-HCT 20-25mg qdaily #Multiple Sclerosis -continue teriflunomide 14mg qdaily #Overactive Bladder -continue solifenacin 5mg qdaily Dispo: med/surg Diet: diabetic diet DVT prophylaxis: SCDs Full Code Admission and Anticipated Discharge Date Admission Date: May 15, 2025 Supervising Physician Co-Signing Physician Notes I personally examined the patient and verified all danielson points of history and exam, discussed case, and agree with decision making with Dr Gómez No new complaints. For OR again todayrepeat bone biopsy necessary. Vitals noted, in general he is awake and alert pleasant no distress. HEENT normocephalic atraumatic mucous membranes moist. Breathing unlabored no accessory muscle use good effort. Skin without rashes pallor or icterus. Neuro without focal deficits. Feet dressed. Labs and diagnostics noted. Longstanding foot wound/diabetic foot infection with presumed osteomyelitis present on admission Antibiotics per infectious disease. Repeat surgery later today. type 2 diabeteslast A1c 6.5, current 7.1. Overall control appears to be good. sugars again adequate today. Continue basal bolus regimen. otherwise as above Subjective No overnight events. Pt reported pain this morning that required a dose of morphine and has felt fine since. Today denies pain, fever, chills, SOB, CP, N/V /C/D, abdominal pain or complaints. He is tolerating diet well. Review of Systems Review of Systems: per HPI Physical Exam Physical Exam: GA: well groomed, well nourished in no apparent distress. AAOx3 HEENT: head normocephalic, atraumatic. EOMI RESP: vesicular breath sounds b/l. No wheezes, rhonchi, or rales CARDIOVASCULAR: S1 and S2 heard. No murmurs, rubs, or gallops. Radial pulses 2+ b/l RRR GI: Normoactive bowel sounds, no tenderness or masses felt to palpation MSK: no gross abnormalities or focal deficits SKIN: warm, dry, no edema PSYCH: appropriate mood and affect NEURO: no focal deficits. speech fluent FOOT: B/L feet in bandages. Results & Data Results & Data Vital Signs (Past 12 Hours) Vital Signs Temp Pulse Resp BP Pulse Ox O2 Del Method 05/17/25 07:50 36.4 C L 69 18 128/71 96 Room Air 05/17/25 06:17 36.3 C L 66 16 128/77 96 Room Air Resident Activity Tracking Resident Involvement: Resident Care Provided Care Provided: Adult Hospital Medicine
[2025-05-17] MEDS ORDERED: VANCOMYCIN CONSULT ACTIVE PRN (15:21)
[2025-05-17] MEDS ORDERED: VANCOMYCIN HCL 2,500 MG in SODIUM CHLORIDE 0.9% 500 ML IV ONE (15:45)
--- NOTE | 2025-05-17 16:54 | History & Physical Bridge Note ---
Date of Service May 17, 2025 History & Physical Bridge Note Specimen was found by lab. Will cancel case today. Follow Infectious disease recommendations. Patient is okay to be discharged from podiatry perspective once medically cleared by infectious disease and all other medical specialties.
[2025-05-17] MEDS: cefTRIAXone SODIUM 2,000 MG/50 ML BAG IV SCH (17:04)
--- NOTE | 2025-05-17 17:05 | Billing Data ---
Date of Service May 17, 2025 Coding Level of Care Code 39825 SUB INP/OBS CARE MIN
[2025-05-17] MEDS: VANCOMYCIN HCL 2,750 MG in SODIUM CHLORIDE 0.9% 500 ML IV ONE (18:12)
--- NOTE | 2025-05-17 20:03 | Pharmacy Report ---
Pharmacy PK ABX Note - Date of Service May 17, 2025 - Assessment and Plan Assessment 64 year old M receiving vancomycin and rocephin for R hallux hardware-associated osteomyelitis s/p I&D 05/16/25. ID consulted, anticipating salvage determiner IV abx. Vancomycin * Loading dose: 2750 mg IV x 1 * Maintenance dose: 1750 mg IV every 12 hours * Regimen is predicted to achieve target AUC/EZE of 400-600 mg/L.hr * Random level ordered for tomorrow to assess dosing Pharmacy will continue to follow and will adjust dose/frequency as necessary. Thank you. Pharmacy has transitioned to AUC monitoring for vancomycin. AUC/EZE is the preferred PK/PD target and is associated with decreased risk of nephrotoxicity compared to traditional trough targets.
[2025-05-17] MEDS: LANTUS PER UNIT CHARGE SQ SCH (20:42)
[2025-05-18] MEDS: VANCOMYCIN HCL 1,750 MG in SODIUM CHLORIDE 0.9% 500 ML IV SCH (04:12)
[2025-05-18 06:18] LABS: Hematocrit (blood only) 36.9 % (42.0-52.0); Hemoglobin 12.6 g/dl (14.0-18.0); Immature Granulocytes # (auto) 0.05 K/uL (0.01-0.20); Immature Granulocytes % (auto) 0.5 %; Mean Corpuscular Hemoglobin 28.3 pg (25.0-34.0); Mean Corpuscular Volume 82.7 fL (80.0-100.0); Platelet Count 131 K/uL (130-400); RDW Standard Deviation 42.6 fL (36.4-46.3); Red Blood Count 4.46 M/uL (4.70-6.10); White Blood Count 10.33 K/ul (4.8-10.8)
[2025-05-18 06:40] LABS: Anion Gap 6.0 (3-11); Blood Urea Nitrogen 12.0 mg/dl (6-23); Calcium 8.2 mg/dl (8.6-10.3); Carbon Dioxide 29.0 mmol/L (21-32); Chloride 103.0 mmol/L (98-107); Creatinine Clr Calc Pharmacy 170.2 ml/min; Potassium 3.1 mmol/L (3.5-5.1); Sodium 138.0 mmol/L (136-145)
--- NOTE | 2025-05-18 07:19 | Podiatry Progress Note ---
Date of Service May 18, 2025 Assessment & Plan (1) Diabetic foot infection: (2) Infected hardware in right leg: (3) Charcot joint of ankle: (4) Osteomyelitis of great toe of right foot: (5) Cellulitis of great toe, right: Plan -All labs, imaging, and notes reviewed -CT ordered and reviewed. No gas or osteomyelitis noted on imaging -Vascular studies ordered. LUPILLO 1.32 right and 1.19 left -Cultures and bone biopsy taken intra op. Cultures pending -Infectious disease consulted. Appreciate recommendations. -S/p right foot incision and drainage and bone biopsy 05/16/25 -Specimen was located by lab yesterday. Case was cancelled. Will continue to fol low surgical cultures from 05/16/25. -Patient is okay to be discharged from podiatry perspective once medically cleared by infectious disease and all other medical specialties. -Will continue to follow while patient is inhouse. Admission and Anticipated Discharge Date Admission Date: May 15, 2025 Subjective No overnight events. Pt reported pain this morning that required a dose of morphine and has felt fine since. Today denies pain, fever, chills, SOB, CP, N/V/C/D, abdominal pain or complaints. He is tolerating diet well. Review of Systems Review of Systems: All systems reviewed & are unremarkable except as noted in HPI & below Physical Exam Cardiovascular: DP and PT non-palpable Musculoskeletal: Charcot arthropathy bilateral lower extremity Skin: Dressing right foot CDI Left foot wound: Full-thickness wound to left plantar foot. Wound probs down to subcutaneous tissue. Minimal drainage noted. No erythema, edema, pain to palpation noted. Hyperkeratotic tissue noted to the periwound. Results & Data Results & Data Vital Signs (Past 12 Hours) Vital Signs Temp Pulse Resp BP Pulse Ox O2 Del Method 05/17/25 23:16 36.7 C 70 18 135/77 94 Room Air
--- NOTE | 2025-05-18 08:24 | Hospitalist Progress Note ---
Date of Service May 18, 2025 Assessment & Plan (1) Cellulitis of great toe, right: (2) Diabetic foot infection: (3) Diabetes mellitus type 2, controlled, with complications: (4) Osteomyelitis of great toe of right foot: Plan Mr. Mccann is a pleasant 64yo gentleman with PMH of T2DM with neuropathy, diabetic foot ulcers, multiple sclerosis, bladder tumors, and stroke 10 years ago here due to being sent in from his outpatient Podiatry office for a screw in his right first hallux. Pt was started on Zosyn in the ED. Labs are reassuring for no leukocytosis. CT imaging of foot shows no signs of osteomyelitis. Podiatry is on board with plans to keep pt NPO after midnight and surgery tomorrow. #Cellulitis of right hallux #Diabetic foot wound #Concern for osteomyelitis #Type 2 Diabetes with neuropathy #Infected hardware -Tylenol 650mg prn for pain -Antibiotics per ID -Glargine 20 units BID -Aspart 10 units -Wegovy, hold -Metformin, hold #Hypokalemia -40mEQ IV KCl repletion today -20mEQ PO KCl tomorrow AM -encourage PO intake -will trend #Hyperlipidemia -continue atorvastatin 20mg qdaily #HTN -continue lisinopril-HCT 20-25mg qdaily #Multiple Sclerosis -continue teriflunomide 14mg qdaily #Overactive Bladder -continue solifenacin 5mg qdaily Dispo: med/surg Diet: diabetic diet DVT prophylaxis: SCDs Full Code Admission and Anticipated Discharge Date Admission Date: May 15, 2025 Supervising Physician Co-Signing Physician Notes I personally examined the patient and verified all danielson points of history and exam, discussed case, and agree with decision making with Dr Gómez no problems. No complaints. Understands awaiting culture results to finalize antibiotic regimen. Vitals noted, in general he is awake and alert pleasant no distress. HEENT normocephalic atraumatic mucous membranes moist. Breathing unlabored no accessory muscle use good effort. Skin without rashes pallor or icterus. Neuro without focal deficits. Feet dressed. Labs and diagnostics noted. Longstanding foot wound/diabetic foot infection with osteomyelitis present on admission Antibiotics per infectious disease. Following cultures. Will need approximately 6 weeks of IV's followed by indefinite suppressive therapy. type 2 diabeteslast A1c 6.5, current 7.1. Overall control appears to be good. sugars again Under acceptable control. Continue basal bolus regimen. otherwise as above Subjective No overnight events. He is tolerating diet well. No complaints or questions. He denies pain, fever, chills, SOB, CP, N/V/C/D, abdominal pain or complaints. Review of Systems Review of Systems: per HPI Physical Exam Physical Exam: GA: well groomed, well nourished in no apparent distress. AAOx3 HEENT: head normocephalic, atraumatic. EOMI RESP: vesicular breath sounds b/l. No wheezes, rhonchi, or rales CARDIOVASCULAR: S1 and S2 heard. No murmurs, rubs, or gallops. Radial pulses 2+ b/l RRR GI: no tenderness or masses felt to palpation MSK: no gross abnormalities or focal deficits SKIN: warm, dry, no edema PSYCH: appropriate mood and affect NEURO: no focal deficits. speech fluent FOOT: B/L feet in dressings. Onychomycosis of toes. Results & Data Results & Data Vital Signs (Past 12 Hours) Vital Signs Temp Pulse Resp BP Pulse Ox O2 Del Method 05/18/25 07:38 36.7 C 80 18 148/80 H 94 Room Air 05/17/25 23:16 36.7 C 70 18 135/77 94 Room Air Resident Activity Tracking Resident Involvement: Resident Care Provided Care Provided: Adult Hospital Medicine
[2025-05-18] MEDS: POTASSIUM CHLORIDE / WTR 10 MEQ/100 ML PLCT IV SCH (08:33)
--- NOTE | 2025-05-18 12:04 | Infectious Disease Progress Nt ---
Date of Service May 18, 2025 Assessment & Plan (1) Osteomyelitis of great toe of right foot: (2) Infected hardware in right leg: (3) Diabetes mellitus type 2, controlled, with complications: Plan Problems: #Chronic R hallux wound with underlying hardware-associated osteomyelitis s/p I&D (05/16/25, unable to remove entire screw) #R hallux IP joint screw in place #T2DM #Clindamycin allergy Micro: 05/16 OR R great toe deep tissue swab #2 cx: low counts mixed probable skin microbiota. GS no org 05/16 OR R great toe deep tissue swab #1 cx: low counts mixed probable skin microbiota. GS no org 05/16 OR R great toe deep tissue cx: low counts mixed probable skin microbiota 05/16 OR R hallux tissue cx: low counts mixed probable skin microbiota. GS no org 05/15 R great toe wound cx: low counts mixed probable skin microbiota. GS no organisms 05/15 BCx x2: NGTD Abx: Cefazolin 05/15 - present Pip-tazo 05/15 64 yo M with T2DM, chronic diabetic foot ulcers, R first IP joint screw in place, multiple sclerosis, BPH, CVA who presented on 05/15 after being sent from podiatry clinic due to worsening R hallux wound, admitted with R hallux hardware-associated osteomyelitis s/p I&D (05/16/25). On presentation, pt was afebrile without leukocytosis, ESR 34, CRP 3.99. Per podiatry note, pt with full thickness wound to distal hallux which probed down to the level of bone and hardware. Malodor, drainage, erythema, edema to R hallux. CT R foot without contrast showed no osteomyelitis or soft tissue abscess. Pt was given Zosyn in the ED, then started on cefazolin. Pt taken to the OR on 05/16 for I&D, hardware removal, and bone biopsy. Screw head was broken and removed, but unable to remove rest of screw. OR cultures all grew low counts of mixed probable skin microbiota. I spoke with the micro lab--these included tw o types of Corynebacterium, two types of coag negative Staph including Staph simulans. Path of the R great toe bone came back with "chronic focally acute osteomyelitis". Recommendations: - With R hallux wound probing to bone and hardware, concerned for hardware- associated osteomyelitis. Anticipate 6 weeks of IV antibiotics for hardware- associated osteomyelitis. Likely follow with snf PO antibiotic suppression given screw remains in place - Follow-up OR cultures--per my discussion with micro, currently with some pinpoint growth on anaerobic plates, undergoing further incubation. Could be the same organisms as above Please note that ID does not round or write notes over the weekend. If questions or concerns arise, please contact the Infectious Disease Call Center and ask to speak with the covering ID physician. Admission and Anticipated Discharge Date Admission Date: May 15, 2025 Subjective This patient recommendation is based on a telemedicine consult request which was completed asynchronously through chart review and information provided by the primary physician. The patient was not seen or examined today. The evaluation is consultative in nature and all patient care and treatment decisions can either be accepted or rejected by the patient's primary hospital-based treating physician using their own independent medical judgment for their patient. Time Spent Reviewing Chart: 11 - 20 minutes OR cultures growing low counts of mixed probable skin microbiota Results & Data Vital Signs (Past 12 Hours) Vital Signs Temp Pulse Resp BP Pulse Ox O2 Del Method 05/18/25 07:38 36.7 C 80 18 148/80 H 94 Room Air Laboratory Results Short CBC 05/18/25 Range/Units 05:45 WBC 10.33 (4.8-10.8) K/ul Hgb 12.6 L (14.0-18.0) g/dl Hct 36.9 L (42.0-52.0) % Plt Count 131 (130-400) K/uL BMP 05/18/25 05:45 Sodium 138 Potassium 3.1 L Chloride 103 Carbon Dioxide 29 BUN 12 Creatinine 0.73 Calcium 8.2 L Medications Administered Current Inpatient Medications Acetaminophen (Acetaminophen 325 Mg Tab) 650 mg PO Q4H PRN PRN Reason: pain/fever Stop: 06/14/25 18:02 Last Admin: 05/18/25 04:15 Dose: 650 mg Al Hydrox/Mg Hydrox/Simethicone (Aluminum/Magnesium Susp 30 Ml Udc) 30 ml PO Q6H PRN PRN Reason: Dyspepsia Stop: 06/14/25 18:02 Atorvastatin Calcium (Atorvastatin 20 Mg Tab) 20 mg PO QAM JULES Stop: 06/15/25 08:59 Last Admin: 05/18/25 08:26 Dose: 20 mg Dextrose (Dextrose 50% 50 Ml Syringe) 25 - 50 ml IV UD PRN; Protocol PRN Reason: Hypoglycemia Protocol Stop: 06/14/25 18:02 Glucagon (Glucagon For Inj 1 Mg Vial) 1 mg SQ UD PRN; Protocol PRN Reason: Hypoglycemia Protocol Stop: 06/14/25 18:02 Glucose (Glucose 40% Gel 15 Gm Tube) 15 - 30 gm PO UD PRN; Protocol PRN Reason: Hypoglycemia Protocol Stop: 06/14/25 18:02 Glucose (Glucose 10 Tab/Tube) 4 - 8 tab PO UD PRN; Protocol PRN Reason: Hypoglycemia Protocol Stop: 06/14/25 18:02 Lisinopril/HCTZ (Lisinopril/Hctz 20/25mg 1 Tab) 1 tab PO QAM JULES Stop: 06/15/25 08:59 Last Admin: 05/18/25 08:26 Dose: 1 tab Lactated Ringer's (Lr) 1,000 mls @ 15 mls/hr IV .Q24H JULES Stop: 05/19/25 17:59 Last Admin: 05/17/25 17:43 Dose: Not Given Ceftriaxone Sodium (Rocephin) 2,000 mg in 50 mls @ 100 mls/hr IV Q24H JULES Stop: 06/28/25 15:44 Last Infusion: 05/17/25 18:18 Dose: Infused Vancomycin HCl 1,750 mg/ (Sodium Chloride) 535 mls @ 200 mls/hr IV Q12H JULES Stop: 06/29/25 03:59 Last Infusion: 05/18/25 07:51 Dose: Infused Potassium Chloride (K Elier / Wtr) 10 meq in 100 mls @ 100 mls/hr IV Q1H JULES Stop: 05/18/25 12:14 Last Admin: 05/18/25 11:26 Dose: 100 mls/hr Insulin Aspart (Insulin Aspart Per Unit Charge) 0 units SC ACHS JULES Stop: 06/16/25 17:14 Last Admin: 05/18/25 08:28 Dose: 10 units Insulin Glargine (Lantus Per Unit Charge) 10 units SQ HS JULES Stop: 06/16/25 20:59 Last Admin: 05/17/25 20:42 Dose: 10 units Magnesium Hydroxide (Magnesium Hydroxide Susp 30 Ml Udc) 30 ml PO Q6H PRN PRN Reason: Constipation Stop: 06/14/25 18:02 Melatonin (Melatonin 3 Mg Tab) 3 mg PO HS PRN PRN Reason: Insomnia Stop: 06/14/25 18:02 Miscellaneous (Carbohydrates For Hypoglycemia ) 15 - 30 gm PO UD PRN PRN Reason: Hypoglycemia Protocol Stop: 06/14/25 18:02 Miscellaneous (Order Awaiting Action - Teriflunomide [Aubagio] 14 Mg Tablet) 1 each N/A QS JULES Stop: 06/15/25 00:00 Last Admin: 05/18/25 08:10 Dose: Not Given Miscellaneous Information (Vancomycin Consult Active) 1 each N/A UD PRN PRN Reason: Consult Stop: 06/16/25 15:20 Ondansetron HCl (Ondansetron Inj 2 Mg/Ml 2 Ml Vial) 4 mg IV Q6H PRN PRN Reason: Nausea Stop: 06/14/25 18:02 Oxybutynin Chloride (Oxybutynin Chloride Xl 5 Mg Tabcr) 5 mg PO QAM JULES Stop: 06/15/25 08:59 Last Admin: 05/18/25 08:26 Dose: 5 mg Pantoprazole Sodium (Pantoprazole 40 Mg Tab) 40 mg PO QAM JULES Stop: 06/15/25 08:59 Last Admin: 05/18/25 08:26 Dose: 40 mg Polyethylene Glycol (Polyethylene (Miralax) 17 Gm Pack) 17 gm PO DAILY PRN PRN Reason: Constipation Stop: 06/14/25 18:02
--- NOTE | 2025-05-18 14:37 | Pharmacy Report ---
Pharmacy PK ABX Note - Date of Service May 18, 2025 - Assessment and Plan Assessment 05/18: Day # 2 vancomycin * Vanco level drawn today was 11.8 mcg/ml which extrapolates to an AUC at the very bottom of the goal range. For better penetration into the joint/hardware, the vancomycin has been increase to target an AUC at the upper end of the goal range. * All toe and blood cultures from 05/15 and 05/16 preliminarily are no growth to date. 05/17: 64 year old M receiving vancomycin and rocephin for R hallux hardware-associated osteomyelitis s/p I&D 05/16/25. ID consulted, anticipating joint terminal attack controller IV abx. Vancomycin * Vanco level drawn today was 11.8 mcg/mL which extrapolates to an AUC of 403mg/L.hr. Increased dose to target upper end of AUC. * Increase maintenance dose to: 2000 mg IV every 12 hours * Regimen is predicted to achieve target AUC/EZE of 500-600 mg/L.hr * Random level ordered for 05/20 to assess dosing Pharmacy will continue to follow and will adjust dose/frequency as necessary. Thank you. Pharmacy has transitioned to AUC monitoring for vancomycin. AUC/EZE is the preferred PK/PD target and is associated with decreased risk of nephrotoxicity compared to traditional trough targets.
--- NOTE | 2025-05-18 17:10 | Billing Data ---
Date of Service May 18, 2025 Coding Level of Care Code 22379 SUB INP/OBS CARE MIN
[2025-05-18] MEDS: VANCOMYCIN HCL 2,000 MG in SODIUM CHLORIDE 0.9% 500 ML IV SCH (17:29)
[2025-05-19 06:33] LABS: Hematocrit (blood only) 39.2 % (42.0-52.0); Hemoglobin 12.6 g/dl (14.0-18.0); Immature Granulocytes # (auto) 0.03 K/uL (0.01-0.20); Immature Granulocytes % (auto) 0.3 %; Mean Corpuscular Hemoglobin 27.1 pg (25.0-34.0); Mean Corpuscular Volume 84.3 fL (80.0-100.0); Platelet Count 131 K/uL (130-400); RDW Standard Deviation 43.8 fL (36.4-46.3); Red Blood Count 4.65 M/uL (4.70-6.10); White Blood Count 9.53 K/ul (4.8-10.8)
[2025-05-19 06:50] LABS: Anion Gap 6.0 (3-11); Blood Urea Nitrogen 15.0 mg/dl (6-23); Calcium 8.2 mg/dl (8.6-10.3); Carbon Dioxide 29.0 mmol/L (21-32); Chloride 106.0 mmol/L (98-107); Creatinine Clr Calc Pharmacy 138.1 ml/min; Potassium 3.3 mmol/L (3.5-5.1); Sodium 141.0 mmol/L (136-145)
[2025-05-19] MEDS: POTASSIUM CHLORIDE CRTAB 20 MEQ TABCR PO ONE (08:12)
--- NOTE | 2025-05-19 11:15 | Hospitalist Progress Note ---
Date of Service May 19, 2025 Assessment & Plan (1) Cellulitis of great toe, right: (2) Diabetic foot infection: (3) Diabetes mellitus type 2, controlled, with complications: (4) Osteomyelitis of great toe of right foot: Plan Mr. Mccann is a pleasant 64yo gentleman with PMH of T2DM with neuropathy, diabetic foot ulcers, multiple sclerosis, bladder tumors, and stroke 10 years ago here due to being sent in from his outpatient Podiatry office for a screw in his right first hallux. Pt was started on Zosyn in the ED. Labs are reassuring for no leukocytosis. CT imaging of foot shows no signs of osteomyelitis. Podiatry is on board with plans to keep pt NPO after midnight and surgery tomorrow. #Cellulitis of right hallux #Diabetic foot wound #Concern for osteomyelitis #Type 2 Diabetes with neuropathy #Infected hardware -Tylenol 650mg prn for pain -Antibiotics per ID -Glargine 20 units BID -Aspart 10 units -Wegovy, hold -Metformin, hold - Plan for 6 weeks of IV antibiotics treatment and indefinite suppressant therapy for osteomyelitis. #C. defficile infection: - D/t antibiotics use of ceftriaxone in the hospital - Prescribed oral vancomycin 250mg Po QID for 10 days. Will consider extended coverage looking at the duration of ceftriaxone. #Hypokalemia -40mEQ IV KCl repletion today -20mEQ PO KCl tomorrow AM -encourage PO intake -will trend #Hyperlipidemia -continue atorvastatin 20mg qdaily #HTN -continue lisinopril-HCT 20-25mg qdaily #Multiple Sclerosis -continue teriflunomide 14mg qdaily #Overactive Bladder -continue solifenacin 5mg qdaily Dispo: med/surg Diet: diabetic diet DVT prophylaxis: SCDs Full Code Admission and Anticipated Discharge Date Admission Date: May 15, 2025 Supervising Physician Co-Signing Physician Notes I personally examined the patient and verified all danielson points of history and exam, discussed case, and agree with decision making with Dr Waller Has had some diarrhea. Not intractable but fairly annoying. C. difficile sent and is pending at the time that I see him. Vitals noted, in general he is awake and alert pleasant no distress. HEENT normocephalic atraumatic mucous membranes moist. Breathing unlabored no accessory muscle use good effort. Skin without rashes pallor or icterus. Neuro without focal deficits. Feet dressed. Labs and diagnostics noted. Longstanding foot wound/diabetic foot infection with osteomyelitis present on admission Antibiotics per infectious disease. Following cultures. Will need approximately 6 weeks of IV's followed by indefinite suppressive therapy. This is now complicated by the fact that he has C. difficileand will require oral vancomycinprobably longer than the duration of his osteomyelitis and then chronic suppressive therapy coursewhich would essentially mean lifelong oral vancomycin as well. Will need a coordinated effort between podiatry and infectious disease as well, but it seems that this may be an indication to have podiatry remove the infected bone so that the osteomyelitis can be definitively remedied and the antibiotic course can be shortened. C. difficile colitisoral vancomycin. Follow. type 2 diabeteslast A1c 6.5, current 7.1. Overall control appears to be good. sugars again under reasonable control. Continue basal bolus regimen. otherwise as above Subjective s/p right foot incision and drainage and bone biopsy 05/16. No new pedal complaints. Reported 4-5 loose stools yesterday and 2 loose stools today morning. Review of Systems Review of Systems: per HPI Physical Exam Physical Exam: GA: well groomed, well nourished in no apparent distress. AAOx3 HEENT: head normocephalic, atraumatic. EOMI RESP: vesicular breath sounds b/l. No wheezes, rhonchi, or rales CARDIOVASCULAR: S1 and S2 heard. No murmurs, rubs, or gallops. Radial pulses 2+ b/l RRR GI: no tenderness or masses felt to palpation MSK: no gross abnormalities or focal deficits SKIN: warm, dry, no edema PSYCH: appropriate mood and affect NEURO: no focal deficits. speech fluent FOOT: B/L feet in dressings. Onychomycosis of toes. Results & Data Results & Data Vital Signs (Past 12 Hours) Vital Signs Temp Pulse Resp BP Pulse Ox O2 Del Method 05/19/25 08:01 36.7 C 67 18 136/73 97 Room Air Resident Activity Tracking Resident Involvement: Resident Care Provided Care Provided: Adult [facility]
--- NOTE | 2025-05-19 11:47 | Podiatry Progress Note ---
Date of Service May 19, 2025 Assessment & Plan (1) Diabetic foot infection: (2) Infected hardware in right leg: (3) Charcot joint of ankle: (4) Osteomyelitis of great toe of right foot: (5) Cellulitis of great toe, right: Plan -All labs, imaging, and notes reviewed -CT ordered and reviewed. No gas or osteomyelitis noted on imaging -Vascular studies ordered. LUPILLO 1.32 right and 1.19 left -Cultures and bone biopsy taken intra op. Cultures pending -Infectious disease consulted. Appreciate recommendations. -S/p right foot incision and drainage and bone biopsy 05/16/25 -Cultures are showing no growth at this time. continue to follow cultures. -Patient is okay to be discharged from podiatry perspective once medically cleared by infectious disease and all other medical specialties. -Will continue to follow while patient is inhouse. Admission and Anticipated Discharge Date Admission Date: May 15, 2025 Subjective s/p right foot incision and drainage and bone biopsy 05/16/25. Cultures are still pending but preliminary cultures show no growth. Patient is doing well today. No new pedal complaints. Review of Systems Review of Systems: All systems reviewed & are unremarkable except as noted in HPI & below Physical Exam Cardiovascular: Extremities: + edema DP/ PT pulses non-palpable. bilateral lower extremtiy edema noted. No pedal hairgrowth. CFT <5 seconds Skin: Incision is well coapted with no clinical signs of infection noted. Right second digit wound is granular with no drainage or clinical signs of infection noted. Left foot dressing clean dry and intact today. Neurologic: Motor/Sensory: + sensory deficit Results & Data Results & Data Vital Signs (Past 12 Hours) Vital Signs Temp Pulse Resp BP Pulse Ox O2 Del Method 05/19/25 08:01 36.7 C 67 18 136/73 97 Room Air
[2025-05-19 12:33] LABS: Cdiff Toxin B Gene (2yr or >) Positive Cdiff Gene (Neg)
[2025-05-19 13:12] LABS: Cdiff Toxin A+B Positive Cdiff Toxin (Negative)
--- NOTE | 2025-05-19 15:48 | Billing Data ---
Date of Service May 19, 2025 Coding Level of Care Code 15342 SUB INP/OBS CARE
[2025-05-19] MEDS: VANCOMYCIN HCL 125 MG CAP PO SCH (16:58)
[2025-05-20 03:49] LABS: Hematocrit (blood only) 39.8 % (42.0-52.0); Hemoglobin 12.9 g/dl (14.0-18.0); Immature Granulocytes # (auto) 0.03 K/uL (0.01-0.20); Immature Granulocytes % (auto) 0.4 %; Mean Corpuscular Hemoglobin 27.6 pg (25.0-34.0); Mean Corpuscular Volume 85.0 fL (80.0-100.0); Platelet Count 127 K/uL (130-400); RDW Standard Deviation 43.8 fL (36.4-46.3); Red Blood Count 4.68 M/uL (4.70-6.10); White Blood Count 8.11 K/ul (4.8-10.8)
[2025-05-20 04:03] LABS: Anion Gap 8.0 (3-11); Blood Urea Nitrogen 15.0 mg/dl (6-23); Calcium 8.4 mg/dl (8.6-10.3); Carbon Dioxide 25.0 mmol/L (21-32); Chloride 106.0 mmol/L (98-107); Creatinine Clr Calc Pharmacy 149.7 ml/min; Potassium 2.9 mmol/L (3.5-5.1); Sodium 139.0 mmol/L (136-145)
[2025-05-20] MEDS: VANCOMYCIN LEVEL ONE (05:00)
[2025-05-20] MEDS ORDERED: POTASSIUM CHLORIDE CRTAB 20 MEQ TABCR PO STA (08:08)
[2025-05-20] MEDS: POTASSIUM CHLORIDE CRTAB 20 MEQ TABCR PO STA (08:34)
--- NOTE | 2025-05-20 10:16 | Hospitalist Progress Note ---
Date of Service May 20, 2025 Assessment & Plan (1) Cellulitis of great toe, right: (2) Diabetic foot infection: (3) Diabetes mellitus type 2, controlled, with complications: (4) Osteomyelitis of great toe of right foot: Plan Mr. Mccann is a pleasant 64yo gentleman with PMH of T2DM with neuropathy, diabetic foot ulcers, multiple sclerosis, bladder tumors, and stroke 10 years ago here due to being sent in from his outpatient Podiatry office for a screw in his right first hallux. Pt was started on Zosyn in the ED. Labs are reassuring for no leukocytosis. CT imaging of foot shows no signs of osteomyelitis. Podiatry is on board with plans to keep pt NPO after midnight and surgery tomorrow. #Cellulitis of right hallux #Diabetic foot wound #Concern for osteomyelitis #Type 2 Diabetes with neuropathy #Infected hardware -Tylenol 650mg prn for pain -Antibiotics per ID -Glargine 20 units BID -Aspart 10 units -Wegovy, hold -Metformin, hold - Plan for 6 weeks of IV antibiotics treatment and indefinite suppressant therapy for osteomyelitis. -Discussed amputating the right hallux bone to avoid extended antibiotic treatment with podiatry. #C. defficile infection: - D/t antibiotics use of ceftriaxone in the hospital - Prescribed oral vancomycin 250mg Po QID for 10 days. Will consider extended coverage looking at the duration of ceftriaxone. #Hypokalemia -40mEQ IV KCl repletion today -20mEQ PO KCl tomorrow AM -encourage PO intake -will trend #Hyperlipidemia -continue atorvastatin 20mg qdaily #HTN -continue lisinopril-HCT 20-25mg qdaily #Multiple Sclerosis -continue teriflunomide 14mg qdaily #Overactive Bladder -continue solifenacin 5mg qdaily Dispo: med/surg Diet: diabetic diet DVT prophylaxis: SCDs Full Code Admission and Anticipated Discharge Date Admission Date: May 15, 2025 Supervising Physician Co-Signing Physician Notes I personally examined the patient and verified all danielson points of history and exam, discussed case, and agree with decision making with Dr Waller Has had some diarrhea. Not intractable but fairly annoying. C. difficile sent and is pending at the time that I see him. Vitals noted, in general he is awake and alert pleasant no distress. HEENT normocephalic atraumatic mucous membranes moist. Breathing unlabored no accessory muscle use good effort. Skin without rashes pallor or icterus. Neuro without focal deficits. Feet dressed. Labs and diagnostics noted. Longstanding foot wound/diabetic foot infection with osteomyelitis present on admission Antibiotics per infectious disease. Following cultures. current plan was 6 weeks of IV's and indefinite suppressive therapy. Discussed with patient that my concern is now that he has C. difficile, being on other antibiotics will likely perpetuate the C. difficile, making the need for C. difficile directed antibiotics also indefinite. Will await further input from infectious disease to see if they have any other course that could remedy both the foot and the C. difficile, but we discussed that it may be necessary to have the infected bone/screw removed so that the course of antibiotics can be more directed at soft tissue infection rather than bone, and the need for indefinite suppressive therapy would no longer be, and therefore the C. difficile would be able to be treated more finite. He seems to be in favor of simply having the infected bone removed. Will await further discussions with infectious disease and podiatry, but certainly this seems like a pretty reasonable course of action, especially given the long-term implications of indefinite suppressive therapy as well as indefinite suppressive therapy in light of a patient that now has C. difficile colitis. C. difficile colitisoral vancomycin. Follow. Improving. Otherwise as above. type 2 diabeteslast A1c 6.5, current 7.1. Overall control appears to be good. sugars remain under good control. Continue basal bolus regimen. otherwise as above Subjective s/p right foot incision and drainage and bone biopsy 05/16. No new pedal complaints. Reported 4-5 loose stools yesterday and 2 loose stools today morning. Review of Systems Review of Systems: per HPI Physical Exam Physical Exam: GA: well groomed, well nourished in no apparent distress. AAOx3 HEENT: head normocephalic, atraumatic. EOMI RESP: vesicular breath sounds b/l. No wheezes, rhonchi, or rales CARDIOVASCULAR: S1 and S2 heard. No murmurs, rubs, or gallops. Radial pulses 2+ b/l RRR GI: no tenderness or masses felt to palpation MSK: no gross abnormalities or focal deficits SKIN: warm, dry, no edema PSYCH: appropriate mood and affect NEURO: no focal deficits. speech fluent FOOT: B/L feet in dressings. Onychomycosis of toes. Results & Data Results & Data Vital Signs (Past 12 Hours) Vital Signs Temp Pulse Pulse Resp BP BP Pulse Ox 05/20/25 07:37 36.3 C L 71 18 114/73 95 05/20/25 00:12 36.7 C 74 18 121/67 94 O2 Del Method 05/20/25 07:37 Room Air 05/20/25 00:12 Room Air Resident Activity Tracking Resident Involvement: Resident Care Provided Care Provided: Adult Hospital Medicine
--- NOTE | 2025-05-20 10:32 | Podiatry Progress Note ---
Date of Service May 20, 2025 Assessment & Plan (1) Diabetic foot infection: (2) Infected hardware in right leg: (3) Charcot joint of ankle: (4) Osteomyelitis of great toe of right foot: (5) Cellulitis of great toe, right: Plan -All labs, imaging, and notes reviewed -CT ordered and reviewed. No gas or osteomyelitis noted on imaging -Vascular studies ordered. LUPILLO 1.32 right and 1.19 left -Cultures and bone biopsy taken intra op. Cultures pending -Infectious disease consulted. Appreciate recommendations. -S/p right foot incision and drainage and bone biopsy 05/16/25 -Cultures are showing no growth at this time. continue to follow final surgical cultures. -Patient tested positive for C.Diff. Will await further recommendations from infectious disease. Did have discussion with patient that it may be necessary to remove infected bone if antibotic regimen does have to change because of C. Diff. -Dressing: Xeroform, 4x4s, Kerlix and SHAHEED bandage to bilateral feet. -Will continue to follow while patient is inhouse. Admission and Anticipated Discharge Date Admission Date: May 15, 2025 Subjective s/p right foot incision and drainage and bone biopsy 05/16. No new pedal complaints. Dressings intact. Patients stool samples came back positive for C.Diff. Will await recommendations from infectious disease. Physical Exam Skin: Dressings to bilateral feet clean dry and intact today. Results & Data Results & Data Vital Signs (Past 12 Hours) Vital Signs Temp Pulse Pulse Resp BP BP Pulse Ox 05/20/25 07:37 36.3 C L 71 18 114/73 95 05/20/25 00:12 36.7 C 74 18 121/67 94 O2 Del Method 05/20/25 07:37 Room Air 05/20/25 00:12 Room Air
--- NOTE | 2025-05-20 10:55 | Billing Data ---
Date of Service May 20, 2025 Coding Level of Care Code 48829 SUB INP/OBS CARE MIN
[2025-05-20] MEDS: POTASSIUM CHLORIDE CRTAB 20 MEQ TABCR PO SCH (11:59)
[2025-05-20 12:35] LABS: Anion Gap 6.0 (3-11); Blood Urea Nitrogen 17.0 mg/dl (6-23); Calcium 8.5 mg/dl (8.6-10.3); Carbon Dioxide 28.0 mmol/L (21-32); Chloride 105.0 mmol/L (98-107); Creatinine Clr Calc Pharmacy 141.2 ml/min; Glucose 160.0 mg/dl (70-99(Fasting)); Potassium 3.5 mmol/L (3.5-5.1); Sodium 139.0 mmol/L (136-145)
[2025-05-21 06:44] LABS: Hematocrit (blood only) 40.0 % (42.0-52.0); Hemoglobin 12.9 g/dl (14.0-18.0); Immature Granulocytes # (auto) 0.02 K/uL (0.01-0.20); Immature Granulocytes % (auto) 0.3 %; Mean Corpuscular Hemoglobin 27.2 pg (25.0-34.0); Mean Corpuscular Volume 84.2 fL (80.0-100.0); Platelet Count 146 K/uL (130-400); RDW Standard Deviation 43.5 fL (36.4-46.3); Red Blood Count 4.75 M/uL (4.70-6.10); White Blood Count 6.19 K/ul (4.8-10.8)
[2025-05-21 07:28] LABS: Anion Gap 7.0 (3-11); Blood Urea Nitrogen 17.0 mg/dl (6-23); Calcium 8.6 mg/dl (8.6-10.3); Carbon Dioxide 28.0 mmol/L (21-32); Chloride 105.0 mmol/L (98-107); Creatinine Clr Calc Pharmacy 149.7 ml/min; Potassium 3.4 mmol/L (3.5-5.1); Sodium 140.0 mmol/L (136-145)
--- NOTE | 2025-05-21 08:07 | Hospitalist Progress Note ---
Date of Service May 21, 2025 Assessment & Plan (1) Cellulitis of great toe, right: (2) Diabetic foot infection: (3) Diabetes mellitus type 2, controlled, with complications: (4) Osteomyelitis of great toe of right foot: Plan Mr. Mccann is a pleasant 64yo gentleman with PMH of T2DM with neuropathy, diabetic foot ulcers, multiple sclerosis, bladder tumors, and stroke 10 years ago here due to being sent in from his outpatient Podiatry office for a screw in his right first hallux. Pt was started on Zosyn in the ED. Labs are reassuring for no leukocytosis. CT imaging of foot shows no signs of osteomyelitis. Podiatry is on board with plans to keep pt NPO after midnight and surgery tomorrow. #Cellulitis of right hallux #Diabetic foot wound #Concern for osteomyelitis #Type 2 Diabetes with neuropathy #Infected hardware -Tylenol 650mg prn for pain -Antibiotics per ID -Glargine 20 units BID -Aspart 10 units -Wegovy, hold -Metformin, hold -Plan for R great toe amputation, treat local infection/cellulitis if any after amputationn. #C. difficile infection: - D/t antibiotics use of ceftriaxone in the hospital - Prescribed oral vancomycin 250mg Po QID for 10 days. Will consider extended coverage looking at the duration of ceftriaxone. #Hypokalemia -40mEQ IV KCl repletion today -20mEQ PO KCl tomorrow AM -encourage PO intake -will trend #Hyperlipidemia -continue atorvastatin 20mg qdaily #HTN -continue lisinopril-HCT 20-25mg qdaily #Multiple Sclerosis -continue teriflunomide 14mg qdaily #Overactive Bladder -continue solifenacin 5mg qdaily Dispo: med/surg Diet: diabetic diet DVT prophylaxis: SCDs Full Code Admission and Anticipated Discharge Date Admission Date: May 15, 2025 Supervising Physician Co-Signing Physician Notes Attending attestation Pt seen and examined in concert with Dr. Messer. In agreement with the documented findings as noted in the resident documentation with any exceptions or additions as noted here. Resting in bed, reporting new irritation of the skin of the perineum and scrotum with accompanying redness and irritation following recent diarrhea without other rash or drainage. No further episodes of diarrhea reported On examination, S1/S2 nl RRR no MCG. CTAB. Abd NT/ND BS+ve. VS as noted. Osteomyelitis of the great toe with retained hardware in the setting of DMII w/ ulceration & neuropathy - podiatry, ID consult - upcoming OR tomorrow with NPO p MN. Pain and glycemic control ongoing. Abx therapy w/ ceftriaxone. C. difficile diarrhea - continue vancomycin to complete 10 day course. ID consultation appreciated. Else see resident documentation as noted. Subjective Patient seen and evaluated at bedside this morning. No acute events overnight. Has not had diarrhea since yesterday. Discussed antibiotic duration and antibiotic choice with ID. Pt conversed with ID and podiatry by phone. Plan for R great toe amputation. Overall no acute complaints. VSS. Review of Systems Review of Systems: reviewed, per HPI Physical Exam Physical Exam: Constitutional: well-appearing, no acute distress HEENT: NCAT, no conjunctival injection CV: extremities well-perfused, no LE edema Resp: no increased work of breathing GI: nondistended MSK: no gross deformities appreciated Skin: warm, dry, no rash appreciated Neuro: alert, oriented, no focal neurologic deficit appreciated Results & Data Results & Data Vital Signs (Past 12 Hours) Vital Signs Temp Pulse Resp BP Pulse Ox O2 Del Method 05/20/25 23:28 36.6 C 70 18 138/79 98 Room Air Resident Activity Tracking Resident Involvement: Resident Care Provided Care Provided: Adult Hospital Medicine
[2025-05-21] MEDS: POTASSIUM CHLORIDE CRTAB 20 MEQ TABCR PO STA (08:36)
--- NOTE | 2025-05-21 09:53 | Infectious Disease Progress Nt ---
Date of Service May 21, 2025 Assessment & Plan (1) Osteomyelitis of great toe of right foot: (2) Infected hardware in right leg: (3) Diabetes mellitus type 2, controlled, with complications: Plan Problems: #Chronic R hallux wound with underlying hardware-associated osteomyelitis s/p I&D (05/16/25, unable to remove entire screw) #R hallux IP joint screw in place #C diff (05/19/25) #T2DM #Clindamycin allergy Micro: 05/16 OR R great toe deep tissue swab #2 cx: low counts mixed probable skin microbiota. GS no org 05/16 OR R great toe deep tissue swab #1 cx: low counts mixed probable skin microbiota. GS no org 05/16 OR R great toe deep tissue cx: low counts mixed probable skin microbiota 05/16 OR R hallux tissue cx: low counts mixed probable skin microbiota. GS no org 05/15 R great toe wound cx: low counts mixed probable skin microbiota. GS no organisms 05/15 BCx x2: NG Abx: PO vanc 05/19 - present Ceftriaxone 05/17 - present Vanc 05/17 - 05/19 Cefazolin 05/15 - 05/17 Pip-tazo 05/15 64 yo M with T2DM, chronic diabetic foot ulcers, R first IP joint screw in place, multiple sclerosis, BPH, CVA who presented on 05/15 after being sent from podiatry clinic due to worsening R hallux wound, admitted with R hallux hardware-associated osteomyelitis s/p I&D (05/16/25). On presentation, pt was afebrile without leukocytosis, ESR 34, CRP 3.99. Per podiatry note, pt with full thickness wound to distal hallux which probed down to the level of bone and hardware. Malodor, drainage, erythema, edema to R hallux. CT R foot without contrast showed no osteomyelitis or soft tissue abscess. Pt was given Zosyn in the ED, then started on cefazolin. Pt taken to the OR on 05/16 for I&D, hardware removal, and bone biopsy. Screw head was broken and removed, but unable to remove rest of screw. OR cultures all grew low counts of mixed probable skin microbiota. I spoke with the micro lab--these included two types of Corynebacterium, two types of coag negative Staph including Staph simulans. Path of the R great toe bone came back with "chronic focally acute osteomyelitis". Recommendations: - Continue ceftriaxone 2 g IV q24h - With R hallux wound probing to bone and hardware, concerned for hardware- associated osteomyelitis. Anticipate 6 weeks of IV antibiotics for hardware- associated osteomyelitis. Likely follow with remote computer terminal operator PO antibiotic suppression given screw remains in place - Follow-up OR cultures--per my discussion with micro, currently with some pinpoint growth on anaerobic plates, undergoing further incubation. Could be the same organisms as above Admission and Anticipated Discharge Date Admission Date: May 15, 2025 Subjective Subsequent visit was provided via telemedicine using two-way real-time interactive telecommunication between the patient and the telemedicine provider. For the duration of the visit, the provider was performing the assessment from a different facility than the patient. This includesuse of bluetooth stethoscope forauscultationperformed by the telepresenter that the telemedicine provider can hear if described in the physical exam. Medical Record Consultant contact information: Please call [facility] [phone]. (Phone Number For Physician Use Only) After establishing a telemedicine visit, patient was: Patient was verified with two unique identifiers, Patient/authorized rep acknowledged consent and understanding and Gave permission to continue telehealth session Time Spent with Patient: Subsequent => 25 min C diff came back positive on 05/19, started on PO vanc Continues on ceftriaxone Results & Data Vital Signs (Past 12 Hours) Vital Signs Temp Pulse Resp BP Pulse Ox O2 Del Method 05/21/25 08:28 36.5 C 61 16 147/76 H 96 Room Air 05/20/25 23:28 36.6 C 70 18 138/79 98 Room Air
--- NOTE | 2025-05-21 11:27 | Infectious Disease Progress Nt ---
Date of Service May 21, 2025 Assessment & Plan (1) Osteomyelitis of great toe of right foot: (2) Infected hardware in right leg: (3) Diabetes mellitus type 2, controlled, with complications: Plan Problems: #Chronic R hallux wound with underlying hardware-associated osteomyelitis s/p I&D (05/16/25, unable to remove entire screw) #R hallux IP joint screw in place #C diff (05/19/25) #T2DM #Clindamycin allergy Micro: 05/19 C diff: PCR, toxin positive 05/16 OR R great toe deep tissue swab #2 cx: low counts mixed probable skin microbiota. GS no org 05/16 OR R great toe deep tissue swab #1 cx: low counts mixed probable skin microbiota. GS no org 05/16 OR R great toe deep tissue cx: low counts mixed probable skin microbiota 05/16 OR R hallux tissue cx: low counts mixed probable skin microbiota. GS no org 05/15 R great toe wound cx: low counts mixed probable skin microbiota. GS no organisms 05/15 BCx x2: NG Abx: PO vanc 05/19 - present Ceftriaxone 05/17 - present Vanc 05/17 - 05/19 Cefazolin 05/15 - 05/17 Pip-tazo 05/15 64 yo M with T2DM, chronic diabetic foot ulcers, R first IP joint screw in place, multiple sclerosis, BPH, CVA who presented on 05/15 after being sent from podiatry clinic due to worsening R hallux wound, admitted with R hallux hardware-associated osteomyelitis s/p I&D (05/16/25). Hospital course c/b C diff diagnosed 05/19. On presentation, pt was afebrile without leukocytosis, ESR 34, CRP 3.99. Per podiatry note, pt with full thickness wound to distal hallux which probed down to the level of bone and hardware. Malodor, drainage, erythema, edema to R hallux. CT R foot without contrast showed no osteomyelitis or soft tissue abscess. Pt was given Zosyn in the ED, then started on cefazolin. Pt taken to the OR on 05/16 for I&D, hardware removal, and bone biopsy. Screw head was broken and removed, but unable to remove rest of screw. OR cultures all grew low counts of mixed probable skin microbiota. I spoke with the micro lab--these included two types of Corynebacterium, two types of coag negative Staph including Staph simulans. Path of the R great toe bone came back with "chronic focally acute osteomyelitis". Diagnosed with C diff on 05/19, started on PO vanc. Diarrhea improved. Discussion: OR cultures only growing mixed skin juliet. Without an organism to target, would need to treat empirically, such as with ceftriaxone x 6 weeks for toe osteomyelitis, followed by usp PO antibiotic suppression given retained screw (such as cefadroxil?). This does place him at risk for recurrent C diff. Also cannot say with certainty that ceftriaxone/cefadroxil would cover the organism of concern. Discussed with podiatry, primary team, and patient. There are risks/benefits to proceeding with antibiotic management for the toe osteomyelitis, vs toe amputation. If toe amputation were pursued, pt would not need to be on antibiotics after discharge, as the infected bone and screw would all be removed. May favor amputation to avoid vermin exterminator antibiotics. Recommendations: - Continue ceftriaxone 2 g IV q24h at this time - Appreciate podiatry consult--awaiting further discussion with patient about potential amputation Will continue to follow Admission and Anticipated Discharge Date Admission Date: May 15, 2025 Subjective This patient recommendation is based on a telemedicine consult request which was completed asynchronously through chart review and information provided by the primary physician. The patient was not seen or examined today. The evaluation is consultative in nature and all patient care and treatment decisions can either be accepted or rejected by the patient's primary hospital-based treating physician using their own independent medical judgment for their patient. Time Spent Reviewing Chart: 21 - 30 minutes C diff came back positive on 05/19, started on PO vanc Continues on ceftriaxone Results & Data Vital Signs (Past 12 Hours) Vital Signs Temp Pulse Resp BP Pulse Ox O2 Del Method 05/21/25 08:28 36.5 C 61 16 147/76 H 96 Room Air 05/20/25 23:28 36.6 C 70 18 138/79 98 Room Air Laboratory Results Short CBC 05/21/25 Range/Units 06:02 WBC 6.19 (4.8-10.8) K/ul Hgb 12.9 L (14.0-18.0) g/dl Hct 40.0 L (42.0-52.0) % Plt Count 146 (130-400) K/uL BMP 05/20/25 05/21/25 11:47 06:02 Sodium 139 140 Potassium 3.5 D 3.4 L Chloride 105 105 Carbon Dioxide 28 28 BUN 17 17 Creatinine 0.88 0.83 Glucose 160 H Calcium 8.5 L 8.6 Medications Administered Current Inpatient Medications Acetaminophen (Acetaminophen 325 Mg Tab) 650 mg PO Q4H PRN PRN Reason: pain/fever Stop: 06/14/25 18:02 Last Admin: 05/19/25 20:32 Dose: 650 mg Al Hydrox/Mg Hydrox/Simethicone (Aluminum/Magnesium Susp 30 Ml Udc) 30 ml PO Q6H PRN PRN Reason: Dyspepsia Stop: 06/14/25 18:02 Atorvastatin Calcium (Atorvastatin 20 Mg Tab) 20 mg PO QAM [facility] Stop: 06/15/25 08:59 Last Admin: 05/21/25 07:56 Dose: 20 mg Dextrose (Dextrose 50% 50 Ml Syringe) 25 - 50 ml IV UD PRN; Protocol PRN Reason: Hypoglycemia Protocol Stop: 06/14/25 18:02 Glucagon (Glucagon For Inj 1 Mg Vial) 1 mg SQ UD PRN; Protocol PRN Reason: Hypoglycemia Protocol Stop: 06/14/25 18:02 Glucose (Glucose 40% Gel 15 Gm Tube) 15 - 30 gm PO UD PRN; Protocol PRN Reason: Hypoglycemia Protocol Stop: 06/14/25 18:02 Glucose (Glucose 10 Tab/Tube) 4 - 8 tab PO UD PRN; Protocol PRN Reason: Hypoglycemia Protocol Stop: 06/14/25 18:02 Lisinopril/HCTZ (Lisinopril/Hctz 20/25mg 1 Tab) 1 tab PO QAM [facility] Stop: 06/15/25 08:59 Last Admin: 05/21/25 07:56 Dose: 1 tab Ceftriaxone Sodium (Rocephin) 2,000 mg in 50 mls @ 100 mls/hr IV Q24H JULES Stop: 06/28/25 15:44 Last Infusion: 05/20/25 16:36 Dose: Infused Insulin Aspart (Insulin Aspart Per Unit Charge) 0 units SC ACHS JULES Stop: 06/16/25 17:14 Last Admin: 05/21/25 08:02 Dose: 6 units Insulin Glargine (Lantus Per Unit Charge) 10 units SQ HS [facility] Stop: 06/16/25 20:59 Last Admin: 05/20/25 20:25 Dose: 10 units Magnesium Hydroxide (Magnesium Hydroxide Susp 30 Ml Udc) 30 ml PO Q6H PRN PRN Reason: Constipation Stop: 06/14/25 18:02 Melatonin (Melatonin 3 Mg Tab) 3 mg PO HS PRN PRN Reason: Insomnia Stop: 06/14/25 18:02 Miscellaneous (Carbohydrates For Hypoglycemia ) 15 - 30 gm PO UD PRN PRN Reason: Hypoglycemia Protocol Stop: 06/14/25 18:02 Miscellaneous (Order Awaiting Action - Teriflunomide [Aubagio] 14 Mg Tablet) 1 each N/A QS [facility] Stop: 06/15/25 00:00 Last Admin: 05/21/25 07:55 Dose: Not Given Ondansetron HCl (Ondansetron Inj 2 Mg/Ml 2 Ml Vial) 4 mg IV Q6H PRN PRN Reason: Nausea Stop: 06/14/25 18:02 Oxybutynin Chloride (Oxybutynin Chloride Xl 5 Mg Tabcr) 5 mg PO QAM [facility] Stop: 06/15/25 08:59 Last Admin: 05/21/25 07:56 Dose: 5 mg Pantoprazole Sodium (Pantoprazole 40 Mg Tab) 40 mg PO QAM [facility] Stop: 06/15/25 08:59 Last Admin: 05/21/25 07:55 Dose: 40 mg Polyethylene Glycol (Polyethylene (Miralax) 17 Gm Pack) 17 gm PO DAILY PRN PRN Reason: Constipation Stop: 06/14/25 18:02 Vancomycin HCl (Vancomycin Hcl 125 Mg Cap) 125 mg PO QID [facility] Stop: 05/29/25 13:01 Last Admin: 05/21/25 07:56 Dose: 125 mg
--- NOTE | 2025-05-21 16:37 | Podiatry Progress Note ---
Date of Service May 21, 2025 Assessment & Plan (1) Diabetic foot infection: (2) Infected hardware in right leg: (3) Charcot joint of ankle: (4) Osteomyelitis of great toe of right foot: (5) Cellulitis of great toe, right: Plan -All labs, imaging, and notes reviewed -CT ordered and reviewed. No gas or osteomyelitis noted on imaging -Vascular studies ordered. LUPILLO 1.32 right and 1.19 left -Cultures and bone biopsy taken intra op. Cultures pending -Infectious disease consulted. Appreciate recommendations. -S/p right foot incision and drainage and bone biopsy 05/16/25 -Extensive discussion was had with infectious disease. Risks and benefits of rubin g-term antibiotic therapy vs Right great toe amputation was discussed. Recommend right great toe amputation for long distance billing operator benefit and limited antibiotic therapy. Plan was discussed with the patient who is on board for right great toe amputation. All questions answered during visit today. Surgery is tentatively scheduled for 2pm. -Scheduled for right great toe amputation 05/22/25 -Patient to be NPO midnight prior to procedure. -Dressing: Xeroform, 4x4s, Kerlix and SHAHEED bandage to bilateral feet. -Will continue to follow while patient is inhouse. Admission and Anticipated Discharge Date Admission Date: May 15, 2025 Subjective S/P incision and drainage 05/16/25. Extensive discussion was had with both infectious disease and the patient about benefits and risks of keeping hardware and toe intact. Patient elects to move forward with right great toe amputation. All questions were answered today. Scheduled for Right Hallux Amputation 05/22/25 Patient to be NPO midnight prior to procedure. Review of Systems Review of Systems: All systems reviewed & are unremarkable except as noted in HPI & below Physical Exam Skin: Dressings to bilateral lower extremities clean dry and intact today. Results & Data Results & Data Vital Signs (Past 12 Hours) Vital Signs Temp Pulse Resp BP Pulse Ox O2 Del Method 05/21/25 14:15 36.6 C 71 16 132/72 97 Room Air 05/21/25 08:28 36.5 C 61 16 147/76 H 96 Room Air
[2025-05-21] MEDS: KETOCONAZOLE 2% CR 15 GM TUBE EXT SCH (20:14)
--- NOTE | 2025-05-22 08:31 | Hospitalist Progress Note ---
Date of Service May 22, 2025 Assessment & Plan (1) Cellulitis of great toe, right: (2) Diabetic foot infection: (3) Diabetes mellitus type 2, controlled, with complications: (4) Osteomyelitis of great toe of right foot: Plan Mr. Mccann is a pleasant 64yo gentleman with PMH of T2DM with neuropathy, diabetic foot ulcers, multiple sclerosis, bladder tumors, and stroke 10 years ago here due to being sent in from his outpatient Podiatry office for a screw in his right first hallux. Pt was started on Zosyn in the ED. Labs are reassuring for no leukocytosis. CT imaging of foot shows no signs of osteomyelitis. Podiatry is on board with plans to keep pt NPO after midnight and surgery tomorrow. #Cellulitis of right hallux #Diabetic foot wound #Concern for osteomyelitis #Type 2 Diabetes with neuropathy #Infected hardware -Tylenol 650mg prn for pain -Antibiotics per ID -Glargine 20 units BID -Aspart 10 units -Wegovy, hold -Metformin, hold -Plan for R great toe amputation, treat local infection/cellulitis if any after amputation Would consider stopping antibiotics once source control obtained #C. difficile infection: - D/t antibiotics use of ceftriaxone in the hospital - Prescribed oral vancomycin 250mg Po QID for 10 days. Will consider extended coverage looking at the duration of ceftriaxone. #Hypokalemia -replete as indicated -encourage PO intake -will trend #Hyperlipidemia -continue atorvastatin 20mg qdaily #HTN -continue lisinopril-HCT 20-25mg qdaily #Multiple Sclerosis -continue teriflunomide 14mg qdaily #Overactive Bladder -continue solifenacin 5mg qdaily Dispo: med/surg Diet: diabetic diet DVT prophylaxis: SCDs Full Code Admission and Anticipated Discharge Date Admission Date: May 15, 2025 Supervising Physician Co-Signing Physician Notes Attending attestation Pt seen and examined in concert with Dr. Messer. In agreement with the documented findings as noted in the resident documentation with any exceptions or additions as noted here. Resting in bed with improvement in groin pruritis and no further diarrheal/GI symptoms reported. On examination, S1/S2 nl RRR no MCG. CTAB. Abd NT/ND BS+ve. VS as noted. Osteomyelitis of the great toe with retained hardware in the setting of DMII w/ ulceration & neuropathy - podiatry, ID consult - OR today, post-procedural ABx through ID appreciated. Pain and glycemic control ongoing. C. difficile diarrhea - continue vancomycin to complete 10 day course. ID consultation appreciated. Else see resident documentation as noted. Subjective Patient seen and evaluated at bedside this morning. No acute events overnight. Patient resting comfortably without significant complaints. Pain controlled. Plan for R great toe amputation today. VSS. Review of Systems Review of Systems: reviewed, per HPI Physical Exam Physical Exam: Constitutional: well-appearing, no acute distress HEENT: NCAT, no conjunctival injection CV: extremities well-perfused, no LE edema Resp: no increased work of breathing GI: nondistended MSK: no gross deformities appreciated Skin: warm, dry, no rash appreciated Neuro: alert, oriented, no focal neurologic deficit appreciated Results & Data Results & Data Vital Signs (Past 12 Hours) Vital Signs Temp Pulse Resp BP Pulse Ox O2 Del Method 05/22/25 00:33 36.5 C 66 18 144/77 H 95 Room Air Resident Activity Tracking Resident Involvement: Resident Care Provided Care Provided: Adult Hospital Medicine
--- NOTE | 2025-05-22 11:47 | History & Physical Bridge Note ---
Date of Service May 22, 2025 History & Physical Bridge Note I have examined the patient, reviewed the History & Physical and in the interval since the performance of the History & Physical I have noted the following changes of clinical significance: no changes noted
[2025-05-22] MEDS: LACTATED RINGER'S 1,000 ML IV SCH (13:04)
[2025-05-22] MEDS ORDERED: ONDANSETRON INJ 2 MG/ML 2 ML VIAL IV PRN (13:08)
[2025-05-22] MEDS ORDERED: ATROPINE SULFATE 0.1 MG/ML 10ML SYR IV PRN (13:08)
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
[2025-05-22] MEDS ORDERED: PROPOFOL IV EMULSION 10 MG/ML 20 ML VIAL IV ONE (13:17)
[2025-05-22] MEDS ORDERED: MIDAZOLAM HCL 1 MG/ML 2ML VIAL ONE (13:18)
[2025-05-22] MEDS ORDERED: ONDANSETRON INJ 2 MG/ML 2 ML VIAL ONE (13:23)
[2025-05-22] MEDS ORDERED: PROPOFOL IV EMULSION 10 MG/ML 100 ML VIAL IV ONE (14:42)
[2025-05-22] MEDS: BUPIVACAINE 0.5 % 5 MG/1 ML MPF 30ML VIAL ONE (15:19)
--- NOTE | 2025-05-22 15:37 | Post Operative Brief Note ---
Immediate Post Op Note Date of Surgery May 22, 2025 Pre & Post Diagnosis Operation Date: 05/22/25 14:00 Pre-Op Diagnosis: Osteomyelitis of great toe of right foot Post-Op Diagnosis: Osteomyelitis of great toe of right foot I identified the patient and participated in the time-out.: Yes Procedure Operation Date: 05/22/25 14:00 Actual Procedures p Right Great Toe Amputation(Right) - Donny Toledo DPM Surgeon Donny Toledo DPM Asset Protection Agent n/a Estimated Blood Loss 10 Findings Consistent with Post-Op Diagnosis consistent with operative note. Complications none
--- NOTE | 2025-05-22 15:47 | Operative Report ---
Post Operative Report Pre & Post Diagnosis Operation Date: 05/22/25 14:00 Pre-Op Diagnosis: Osteomyelitis of great toe of right foot Post-Op Diagnosis: Osteomyelitis of great toe of right foot I identified the patient and participated in the time-out.: Yes Procedure Operation Date: 05/22/25 14:00 Actual Procedures p Right Great Toe Amputation(Right) - Donny Toledo DPM Surgeon Donny Toledo DPM Access Representative n/a Estimated Blood Loss 10 Findings Consistent with Post-Op Diagnosis necrosis of right hallux Specimens right great toe Complications none Indications Patient is a pleasant 64-year-old that presented with osteomyelitic right great toe with retained hardware. Patient did have a bone biopsy on 05/16/2025. During patient's hospital stay patient tested positive C. difficile. Extensive discussion was had with infectious disease team about long-term antibiotic use versus amputation of right great toe. Options and discussion was had with patient and patient elected to go forward with right great toe amputation. Procedure was then performed today 05/22/2025. Description of Procedure Procedures: Incision and drainage, right foot Amputation of Great toe, Right Following satisfactory preop evaluation the patient was brought to the OR and placed on the OR table in the supine position. MAC sedation was administered by anesthesia. Following sedation the foot was then prepped and draped in the usual sterile manner and loaded onto the surgical field. Attention was then directed to the right hallux where there was noted to be edema, tissue slough with slight distal gangrene to the distal aspect of the right hallux. using a 10 blade incision was made through the skin to bone suture from the base of the first digit distal and proximal phalanx. The proximal phalanx was then freed from its attachments and disarticulated at the MPJ by 10 blade. The digit was then passed off the field to be sent for pathologic evaluation. The of the first metatarsal bone was noted to be healthy with no signs of infection to the joint. The surrounding soft tissues were debrided of all nonviable tissue and inspected for tracking of infection and no evidence of further infection was found. The excess length of the exposed extensor and flexor tendons to the digit were cut proximally by a 10 blade with no tracking of infection noted. The skin edges were noted to be healthy bleeding tissue. The amputation site was then cleaned and flushed with copious amounts of sterile saline. At this time the amputation site is noted to be healthy viable tissue with no evidence of infection involving the joint so primary closure was done. The incision was then reapproximated using 3-0 nylon in an [id number] fashion. A dressing was applied consisting of Xeroform, 4 x 4 gauze, Kerlix, Raul wrap. The patient tolerated anesthesia and the procedure well was transported back to recovery. Orders for the following are written: 1.notify medicine of return to floor 2.resume all preop medications, orders and diet 3 keep dressing clean dry and intact podiatry to change 4.partial weightbearing to right foot and surgical shoe 5.elevate right foot with pillow under leg I attest to the content of the Intraoperative Record and any orders documented therein. Any exceptions are noted below.
--- NOTE | 2025-05-22 16:09 | Infectious Disease Progress Nt ---
Date of Service May 22, 2025 Assessment & Plan (1) Osteomyelitis of great toe of right foot: (2) Infected hardware in right leg: (3) Diabetes mellitus type 2, controlled, with complications: Plan Problems: #Chronic R hallux wound with underlying hardware-associated osteomyelitis s/p I&D (05/16/25, unable to remove entire screw), then toe amputation (05/22/25) #R hallux IP joint screw in place #C diff (05/19/25) #T2DM #Clindamycin allergy Micro: 05/19 C diff: PCR, toxin positive 05/16 OR R great toe deep tissue swab #2 cx: low counts mixed probable skin microbiota. GS no org 05/16 OR R great toe deep tissue swab #1 cx: low counts mixed probable skin microbiota. GS no org 05/16 OR R great toe deep tissue cx: low counts mixed probable skin microbiota 05/16 OR R hallux tissue cx: low counts mixed probable skin microbiota. GS no org 05/15 R great toe wound cx: low counts mixed probable skin microbiota. GS no organisms 05/15 BCx x2: NG Abx: PO vanc 05/19 - present Ceftriaxone 05/17 - present Vanc 05/17 - 05/19 Cefazolin 05/15 - 05/17 Pip-tazo 05/15 64 yo M with T2DM, chronic diabetic foot ulcers, R first IP joint screw in place, multiple sclerosis, BPH, CVA who presented on 05/15 after being sent from podiatry clinic due to worsening R hallux wound, admitted with R hallux hardware-associated osteomyelitis s/p I&D (05/16/25). Hospital course c/b C diff diagnosed 05/19. On presentation, pt was afebrile without leukocytosis, ESR 34, CRP 3.99. Per podiatry note, pt with full thickness wound to distal hallux which probed down to the level of bone and hardware. Malodor, drainage, erythema, edema to R hallux. CT R foot without contrast showed no osteomyelitis or soft tissue abscess. Pt was given Zosyn in the ED, then started on cefazolin. Pt taken to the OR on 05/16 for I&D, hardware removal, and bone biopsy. Screw head was broken and removed, but unable to remove rest of screw. OR cultures all grew low counts of mixed probable skin microbiota. I spoke with the micro lab--these included two types of Corynebacterium, two types of coag negative Staph including Staph simulans. Path of the R great toe bone came back with "chronic focally acute osteomyelitis". Diagnosed with C diff on 05/19, started on PO vanc. Diarrhea improved. Discussion: OR cultures only growing mixed skin juliet. Without an organism to target, would need to treat empirically, such as with ceftriaxone x 6 weeks for toe osteomyelitis, followed by extermination inspector PO antibiotic suppression given retained screw (such as cefadroxil?). This does place him at risk for recurrent C diff. Also cannot say with certainty that ceftriaxone/cefadroxil would cover the organism of concern. Discussed with podiatry, primary team, and patient. There are risks/benefits to proceeding with antibiotic management for the toe osteomyelitis, vs toe amputation. If toe amputation were pursued, pt would not need to be on antibiotics after discharge, as the infected bone and screw would all be removed. Ultimately, pt was taken for R great toe amputation on 05/22 for source control. Recommendations: - Can receive last dose of ceftriaxone 2 g today - Continue C diff treatment with PO vancomycin 125 mg QID x 10 days Will sign off. Admission and Anticipated Discharge Date Admission Date: May 15, 2025 Subjective This patient recommendation is based on a telemedicine consult request which was completed asynchronously through chart review and information provided by the primary physician. The patient was not seen or examined today. The evaluation is consultative in nature and all patient care and treatment decisions can either be accepted or rejected by the patient's primary hospital-based treating physician using their own independent medical judgment for their patient. Time Spent Reviewing Chart: 11 - 20 minutes Taken to OR today for R great toe amputation Results & Data Vital Signs (Past 12 Hours) Vital Signs Temp Pulse Pulse Resp BP BP Pulse Ox 05/22/25 15:50 36.1 C L 60 21 150/85 H 98 05/22/25 15:40 63 18 138/86 99 05/22/25 15:30 36.3 C L 60 14 115/72 100 05/22/25 13:01 36.6 C 63 18 148/81 H 98 05/22/25 08:00 36.4 C L 62 18 143/82 H 94 O2 Del Method O2 Flow Rate 05/22/25 15:50 Room Air 05/22/25 15:40 Room Air 05/22/25 15:30 Oxymask 11 05/22/25 13:01 Room Air 05/22/25 08:00 Room Air
[2025-05-22 23:48] VITALS: RESP 16
[2025-05-23 07:23] VITALS: O2SAT 96
[2025-05-23 08:56] LABS: Hematocrit (blood only) 41.6 % (42.0-52.0); Hemoglobin 13.5 g/dl (14.0-18.0); Immature Granulocytes # (auto) 0.03 K/uL (0.01-0.20); Immature Granulocytes % (auto) 0.4 %; Mean Corpuscular Hemoglobin 27.0 pg (25.0-34.0); Mean Corpuscular Volume 83.2 fL (80.0-100.0); Platelet Count 155 K/uL (130-400); RDW Standard Deviation 43.0 fL (36.4-46.3); Red Blood Count 5.00 M/uL (4.70-6.10); White Blood Count 8.16 K/ul (4.8-10.8)
[2025-05-23 09:18] LABS: Alanine Aminotransferase 33.0 U/L (7-52); Albumin Globulin Ratio 1.2 (0.9-2); Albumin Level 3.7 gm/dl (3.4-5.0); Alkaline Phosphatase 113.0 U/L (34-104); Anion Gap 7.0 (3-11); Bilirubin,Total 0.6 mg/dl (0.2-1.0); Blood Urea Nitrogen 15.0 mg/dl (6-23); Calcium 8.5 mg/dl (8.6-10.3); Carbon Dioxide 29.0 mmol/L (21-32); Chloride 104.0 mmol/L (98-107); Creatinine Clr Calc Pharmacy 141.2 ml/min; Globulin 3.1 gm/dl (2.5-4.0); Glucose 201.0 mg/dl (70-99(Fasting)); Potassium 3.4 mmol/L (3.5-5.1); Sodium 140.0 mmol/L (136-145); Total Protein 6.8 gm/dl (6.0-8.3)
[2025-05-23 11:29] VITALS: BP 120/73; PULSE 71; TEMP 97.3
--- NOTE | 2025-05-23 11:48 | Podiatry Progress Note ---
Date of Service May 23, 2025 Assessment & Plan (1) Diabetic foot infection: (2) Infected hardware in right leg: (3) Charcot joint of ankle: (4) Osteomyelitis of great toe of right foot: (5) Cellulitis of great toe, right: Plan -All labs, imaging, and notes reviewed -CT ordered and reviewed. No gas or osteomyelitis noted on imaging -Vascular studies ordered. LUPILLO 1.32 right and 1.19 left. Can follow up with Dr. Hernandez out patient. -Cultures and bone biopsy taken intra op. -Infectious disease consulted. Appreciate recommendations. -S/p right foot incision and drainage and bone biopsy 05/16/25 - S/P right great toe amputation 05/22/25 - Partial weightbearing to right foot in surgical shoe. - Patient is okay to be discharged from podiatry perspective once medically cleared by infectious disease and all other medical specialities. -Dressing: Xeroform, 4x4s, Kerlix and SHAHEED bandage to bilateral feet QoD dressing changes. -Will continue to follow while patient is inhouse. Admission and Anticipated Discharge Date Admission Date: May 15, 2025 Subjective Taken to OR today for R great toe amputation Physical Exam Cardiovascular: DP and PT pulses non-palpable Skin: Incision to the right foot is well coapted with no gapping or clinical signs of infection noted. minial drainage noted. No pain to palpation noted. Dressing to left foot clean dry and intact. Neurologic: Light touch and protective sensation diminished Results & Data Results & Data Vital Signs (Past 12 Hours) Vital Signs Temp Pulse Resp BP Pulse Ox O2 Del Method 05/23/25 11:28 36.3 C L 71 16 120/73 96 Room Air 05/23/25 07:23 36.5 C 68 16 154/82 H 96 Room Air 05/23/25 02:48 36.6 C 63 16 166/83 H 98 Room Air 05/22/25 23:47 36.7 C 70 16 147/82 H 96 Room Air
--- NOTE | 2025-05-23 14:29 | Discharge Summary ---
Date of Service May 23, 2025 Admission HPI Per Admitting Provider Mr. Mccann is a pleasant 64yo gentleman with PMH of T2DM, diabetic foot ulcers, multiple sclerosis, bladder tumors, and stroke 10 years ago here due to being sent in from his outpatient Podiatry office for a screw in his right first hallux. He stated he had a screw placed in his right first toe about 10 years ago due to a tumor in the toe in order to keep structure. He was doing apparently well until a month ago when he bumped his toe on a board at home. Since that time the pain has gotten progressively worse with associated chills and night sweats over the last three days. Pt describes the pain as intermitten t, dull, rated 3/10 that radiates to the ball of his foot. He presently denies fevers, chills, SOB, CP, palpitations, N/V/C/D, abdominal, or urinary complaints. Pt was started on Zosyn in the ED. Labs are reassuring for no leukocytosis. CT imaging of foot shows no signs of osteomyelitis. Podiatry is on board with plans to keep pt NPO after midnight and surgery tomorrow. Admission Exam Per Admitting Provider GA: well groomed, well nourished in no apparent distress. AAOx3 HEENT: head normocephalic, atraumatic. EOMI RESP: vesicular breath sounds b/l. No wheezes, rhonchi, or rales CARDIOVASCULAR: S1 and S2 heard. No murmurs, rubs, or gallops. Radial pulses 2+ b/l RRR GI: Normoactive bowel sounds, no tenderness or masses felt to palpation MSK: no gross abnormalities or focal deficits SKIN: warm, dry, no edema PSYCH: appropriate mood and affect NEURO: no focal deficits. speech fluent FOOT: B/L feet in bandages. Right hallux has nonpurulent 6mm wound at tip of toe. 2+ DP and PT pulses on right foot. 2+ PT pulse on left foot, DP deferred due to dressing. 1+ edema B/L. Sensation diminished B/L. Principal Diagnosis R great toe osteomyelitis Discharge Exam Constitutional: well-appearing, no acute distress HEENT: NCAT, no conjunctival injection CV: extremities well-perfused, no LE edema Resp: no increased work of breathing GI: nondistended MSK: b/l feet wrapped in bandages, R foot in surgical shoe Skin: warm, dry, no rash appreciated Neuro: alert, oriented, no focal neurologic deficit appreciated Discharge Data Allergies Allergy/AdvReac Type Severity Reaction Status Date / Time clindamycin Allergy Intermediate HIVES Verified 05/16/25 17:42 Consultations 05/15/25 14:59 ED Decision to Admit Stat 05/16/25 16:14 Consult Podiatry Routine 05/16/25 19:49 Consult Infectious Diseases Routine Procedures Performed Operation Date: 05/22/25 14:00 Actual Procedures p Right Great Toe Amputation(Right) - Donny Toledo DPM Ordered Studies 05/15/25 13:43 CT foot RT wo con Stat 05/15/25 15:25 US ankle brachial index [US ankle/brachial index ltd] Routine 05/16/25 FL foot RT 2V Routine Hospital Course (1) Cellulitis of great toe, right: (2) Diabetic foot infection: (3) Diabetes mellitus type 2, controlled, with complications: (4) Osteomyelitis of great toe of right foot: Plan Mr. Mccann is a pleasant 64yo gentleman with PMH of T2DM with neuropathy, diabetic foot ulcers, multiple sclerosis, bladder tumors, and stroke 10 years ago here due to being sent in from his outpatient Podiatry office for a screw in his right first hallux. Pt was started on Zosyn in the ED. Labs are reassuring for no leukocytosis. CT imaging of foot shows no signs of osteomyelitis. Podiatry is on board with plans to keep pt NPO after midnight and surgery tomorrow. #Cellulitis of right hallux #Diabetic foot wound #Concern for osteomyelitis #Type 2 Diabetes with neuropathy #Infected hardware -Tylenol 650mg prn for pain -Antibiotics per ID -Glargine 20 units BID -Aspart 10 units -Wegovy, hold -Metformin, hold -R great toe amputation performed 05/23/25, pt tolerated procedure well, able to ambulate with walker in surgical shoe -Source control obtained through surgical intervention, no further need for ongoing antibiotics for osteo/cellulitis -Will discharge with rolling walker -Ongoing care through podiatry in the outpatient setting #C. difficile infection: - D/t antibiotics use of ceftriaxone in the hospital - Prescribed oral vancomycin 125mg Po QID for 10 days (day 510) #Hypokalemia -replete as indicated -encourage PO intake -will trend #Hyperlipidemia -continue atorvastatin 20mg qdaily #HTN -continue lisinopril-HCT 20-25mg qdaily #Multiple Sclerosis -continue teriflunomide 14mg qdaily #Overactive Bladder -continue solifenacin 5mg qdaily Dispo: med/surg Diet: diabetic diet DVT prophylaxis: SCDs Full Code Total Time Total Time Spent Total Time Spent (In Minutes): see attending documentation Discharge Plan Discharge Items Patient Disposition: Home - Home Health Services Reason For Visit: R GREAT TOE INJURY/LESION Discharge Diagnosis: Diabetic Foot Infection Condition on Discharge: Fair Activity: Resume your previous activity Activity Comment: as tolerated Non-emergency contact: Primary Care Provider Call non-emergency contact if: your symptoms worsen, your pain is worsening and you have a fever Follow-up/Referrals: Cuco Yu DO [Primary Care Provider] - 05/30/25 11:30 am Diet: Carb Consistent or DM2 Addtl Attending Provider Instructions: You were admitted to the hospital for an infection in your right great toe. Initially a procedure was performed to attempt to remove the most infected tissue and the plan was to treat with ad terminal makeup operator ongoing antibiotics. However, you developed an infection called c.diff. Unfortunately, this was likely a consequence of having to be on IV antibiotics. Ultimately a decision was made to amputate that toe. According to podiatry, it appears that all infected tissue was removed during this surgery. For this reason you no longer have to take antibiotics for your toe infection. You will need to continue antibiotics for the c.diff infection in your bowels for a total of 40 doses. You received 14 doses while hospitalized. A prescription will be sent to your pharmacy for the remaining doses. Be sure to take all of this medication to ensure that your diarrhea and the infection do not come back. You were seen by physical therapy on the day of discharge and it was felt that having a rolling walker would be beneficial on your return home. Case management arranged for you prior to discharge. Use this along with your surgical boot until cleared by podiatry and/or physical therapy. A discharge summary will be sent to your primary care physician to ensure continuity of care. Please bring this discharge summary with you to your next office appointment so that your provider can review it at that time. Follow-up appointments: Make a follow-up appointment with your PCP within the next week. It is very important that you follow up with them shortly after discharge from the hospital. Be sure to follow up with podiatry as scheduled and follow their instructions for dressing changes. Keep all your follow-up appointments as already scheduled. If you cannot make an appointment, notify your provider. Medications: Your medication list has been reviewed and reconciled upon discharge to ensure accuracy and continuity of care. An updated list of all your medications is included with your hospital discharge paperwork. Please review this list closely, and make note of any changes. We sent a new medication called vancomycin to your pharmacy. Take vancomycin (125mg) one tablet every 6 hours until finished. You should take your first dose at home tonight around 7:00pm If you have any issues filling these prescriptions, please call [phone] and ask to leave a message for Dr. Alex Messer. Take your medications as instructed; do not skip a dose of your medicines. Make sure all of your doctors know every medicine you are taking (including mvvp-xza-beciggw medicines, vitamins, and supplements). Call your primary care provider before taking any new medicines (including rtcc-wiz-fnkjekb medicines, vitamins, and supplements), because some of these may interact with your current medications, or may make your symptoms worse. Tell your primary care provider if you cannot afford your medications. CONTACT YOUR PRIMARY CARE PROVIDER if you experience any of the following: Increased pain or drainage from your surgical site Fevers or chills Difficulty following your treatment plan, or difficulty taking medications CALL 911 OR GO TO THE EMERGENCY DEPARTMENT if you experience any of the following: Sudden, severe abdominal pain or nausea/vomiting Severe chest pain, or chest pain that radiates (moves) to your jaw or arm Sudden, severe shortness of breath or difficulty breathing Thank you for allowing us to participate in your care. Pending Studies at Discharge: No Stand-Alone Forms: [facility] Medications and DC Order Prescriptions: New vancomycin 125 mg capsule 125 mg PO Q6H Qty: 26 0RF Continued (DME) lancets [OneTouch Delica Lancets] 33 gauge misc See Dose Instructions .ROUTE .MEDSUPPLY Qty: 300 5RF Dose Instruction: As directed Rx Instructions: TEST 1-3 TIMES A DAY (DME) blood sugar diagnostic Strip See Rx Instructions .ROUTE .MEDSUPPLY Qty: 400 3RF Dose Instruction: As directed Rx Instructions: [employer]. Test blood sugar QID when Erika is not working lisinopril-hydrochlorothiazide 20-25 mg tablet 1 tab PO QAM Qty: 90 3RF atorvastatin 20 mg tablet 20 mg PO QAM Qty: 90 3RF metformin 1,000 mg tablet 1,000 mg PO QAM Qty: 180 3RF Hold Instructions: Resume on 06/10/23. RESTART NORMAL DOSE AFTER 9 AM ON 06/10/23 teriflunomide [Aubagio] 14 mg tablet 14 mg PO QAM 30 Days Qty: 30 11RF meclizine 25 mg tablet 25 mg PO BID PRN (Reason: dizziness) Qty: 60 0RF insulin glargine [Lantus Solostar U-100 Insulin] 100 unit/mL (3 mL) insulin pen 20 unit SQ BID MDD 60 U Qty: 45 3RF insulin aspart U-100 [Novolog FlexPen U-100 Insulin] 100 unit/mL (3 mL) insulin pen 10 unit subcut TID Qty: 9 3RF ibuprofen [Advil] 200 mg tablet 200 mg PO QID PRN (Reason: Pain) sildenafil [Viagra] 100 mg tablet 100 mg PO ONCE PRN (Reason: sexual activity) Qty: 4 11RF Rx Instructions: administer 30 minutes to 4 hours before activity (DME) FreeStyle Erika 2 Sensor Kit See Rx Instructions .Route Rx Instructions: Change sensor every 14 days (DME) FreeStyle Erika 2 [facility] See Rx Instructions .Route Rx Instructions: Use to monitor Erika readings (DME) pen needle, diabetic [Unifine Pentips] 31 gauge x 5/16" needle See Dose Instructions .ROUTE .MEDSUPPLY Rx Instructions: INJECTIONS 5 X DAILY flaxseed oil 1,000 mg capsule 1,000 mg PO BID Rx Instructions: administer with a meal pantoprazole [Protonix] 40 mg tablet,delayed release (DR/EC) 40 mg PO QAM Qty: 90 3RF betamethasone valerate 0.1 % ointment 1 applic topical BID PRN (Reason: phimosis) Qty: 15 0RF solifenacin [Vesicare] 5 mg tablet 5 mg PO QAM Qty: 90 3RF ewniszy-dfylkgzbk-lvwt 333-133-5 mg Tablet 1 tab PO BID docusate sodium [Colace] 100 mg capsule 100 mg PO BID PRN (Reason: Constipation) Wegovy 2.4 mg/0.75 mL pen injector 2.4 mg SUBCUT WK Rx Instructions: fridays Discharge Orders: Discharge Order (Routine); Ordered 05/23/25 Ordered By: Alex Appiah/Other Patient Handouts: Nutrition for Wound Healing, Managing Type 2 Diabetes Admission Data Admit Date/Time: 05/15/25 15:30 Attending Provider: Anthony De Los Santos Admit Provider: Alex Messer Primary Care Provider: Cuco Yu Other Providers: [facility],Home Healthcare; [facility],Fax; Aryan Krihsna; Donny Toledo Other Interventions: Discharge Summary Assessment (RN) Last Done: 05/23/25 15:43 Supervising Physician Co-Signing Physician Notes Attending attestation Pt seen and examined in concert with Dr. Messer. In agreement with the documented findings as noted in the resident documentation with any exceptions or additions as noted here. Resting in bed, ongoing improvement in intertrigo. Pain well controlled, ambulating in room with wheeled walker without significant complaint. On examination, S1/S2 nl RRR no MCG. CTAB. Abd NT/ND BS+ve. VS as noted. Osteomyelitis of the great toe with retained hardware in the setting of DMII w/ ulceration & neuropathy s/p amputation - podiatry, ID consult - pain control as noted with precautions for activity and wound care. C. difficile diarrhea - continue vancomycin to complete 10 day course. ID consultation appreciated. Intertrigo - complete course of topical antifungal therapy. Else see resident documentation as noted. Total attending physician time spent with this patient's care on the day of discharge: 35 minutes. Resident Activity Tracking Resident Involvement: Resident Care Provided Care Provided: Adult Hospital Medicine
--- NOTE | 2025-05-25 08:07 | Anesthesiology Progress Note ---
Date of Service May 22, 2025 Anesthesia Post Procedure Pain Intensity Right Foot: Pain Intensity: 3 Transfer of Care Handoff Completed per policy Notes Mental Status: alert / awake / arousable and participated in evaluation Patient Amnestic to Procedure: Yes Nausea / Vomiting: adequately controlled Pain: adequately controlled Airway Patency, RR, SpO2: stable & adequate BP & HR: stable & adequate Hydration State: stable & adequate Anesthetic Complications: no major complications apparent and Pt Satisfied with anesthetic care
== END 2025-05-23 16:23 | disposition home health service (06) | DRG 617 ==
LOC: ED 12:49 → 3E 15:30 → SUATTDRO 15:30 → 3E 17:19